=== PATIENT | male | born 1970 | race Caucasian/White ===

== ENCOUNTER 2020-02-05 07:51 | Outpatient (REF) | payer OTHER, SELFPAY ==
[2020-02-05 11:16] LABS: MANUAL DIFF FLAG NO
[2020-02-05 11:30] LABS: Basophils Percent Auto 0.8 % (0-2); Eosinophils Absolute Auto 0.3 X10*3/uL (0.0-0.4); Eosinophils Percent Auto 6.7 % (0-4); Hematocrit 41.6 % (42-52); Hemoglobin 14.1 g/dl (14.0-18.0); Imm Gran Abs Auto 0.01 X10*3/uL (0.00-0.03); Imm Gran Pct Auto 0.2 % (0.0-0.4); Lymphocytes Percent Auto 39.2 % (20-40); Mean Corpuscular HGB Conc 33.9 g/dl (31.0-36.0); Mean Corpuscular Hemoglobin 31.8 pg (27.0-33.0); Mean Corpuscular Volume 93.9 fL (80-98); Mean Platelet Volume 11.9 fL (9.4-12.4); Monocytes Absolute Auto 0.5 X10*3/uL (0.1-1.2); Monocytes Percent Auto 9.8 % (2-11); Neutrophils Absolute Auto 2.2 X10*3/uL (2.0-8.3); Neutrophils Percent Auto 43.3 % (45-73); Platelet Count 244 X10*3/uL (160-400); Red Blood Count 4.43 X10*6/uL (4.60-5.80); White Blood Count 5.1 X10*3/uL (4.8-10.8)
[2020-02-05 12:21] LABS: Alanine Aminotransferase 20 U/L (0-40); Albumin Level 4.6 g/dL (3.5-5.0); Alkaline Phosphatase 56 U/L (39-117); Anion Gap 13 (12-20); Aspartate Amino Transferase 22 U/L (5-37); Bilirubin Total 0.6 mg/dL (0.0-1.0); Blood Urea Nitrogen 10 mg/dL (9-16); Carbon Dioxide 29 mmol/L (22-29); Chloride 101 mmol/L (96-108); Cholesterol 165 mg/dL; Estimated Glomerular Filt Rate > 60; Glucose Fasting 99 mg/dL (60-99); HDL Cholesterol 43 mg/dL; LDL Cholesterol Calculated 96 mg/dl; Potassium 4.8 mmol/l (3.3-5.1); Sodium 138 mmol/L (135-145); Total Protein 7.4 g/dL (6.5-8.0); Triglycerides 131 mg/dL
[2020-02-05 12:48] LABS: Vitamin D 25-OH Total 31.8 ng/mL (>30)
== END 2020-02-05 07:52 | disposition home or self-care (01) ==
LOC: HO.HMGCLDS 07:51
PROVIDERS: PCP Internal Medicine; Visit Provider Internal Medicine
DX: Z00.00 Encounter for general adult medical examination without abnormal findings (principal); G47.33 Obstructive sleep apnea (adult) (pediatric); E55.9 Vitamin D deficiency, unspecified
CPT/HCPCS: 36415; 80053; 80061; 82306; 84443; 85025

== ENCOUNTER 2021-02-04 08:12 | Outpatient (REF) | payer OTHER, SELFPAY ==
[2021-02-04 11:28] LABS: MANUAL DIFF FLAG NO
[2021-02-04 11:34] LABS: Basophils Absolute Auto 0.1 X10*3/uL (0.0-0.2); Basophils Percent Auto 1.3 % (0-2); Eosinophils Absolute Auto 0.3 X10*3/uL (0.0-0.4); Eosinophils Percent Auto 6.1 % (0-4); Hematocrit 40.6 % (42.0-52.0); Hemoglobin 13.9 g/dl (14.0-18.0); Imm Gran Abs Auto 0.01 X10*3/uL (0.00-0.03); Imm Gran Pct Auto 0.2 % (0.0-0.4); Lymphocytes Absolute Auto 1.6 X10*3/uL (1.2-4.9); Lymphocytes Percent Auto 35.5 % (20-40); Mean Corpuscular HGB Conc 34.2 g/dl (31.0-36.0); Mean Corpuscular Volume 90.6 fL (80.0-98.0); Mean Platelet Volume 11.1 fL (9.4-12.4); Monocytes Absolute Auto 0.5 X10*3/uL (0.1-1.2); Monocytes Percent Auto 10.1 % (2-11); Neutrophils Absolute Auto 2.1 x10*3/uL (2.0-8.3); Neutrophils Percent Auto 46.8 % (45-73); Platelet Count 241 X10*3/uL (160-400); Red Blood Count 4.48 X10*6/uL (4.60-5.80); Red Cell Distribution Width 11.9 % (11.0-16.0); White Blood Count 4.6 X10*3/uL (4.8-10.8)
[2021-02-04 11:38] LABS: Appearance Urine CLEAR; Color Urine YELLOW; Glucose Urine UA NEG (NEG); Leukocyte Esterase Urine NEG (NEG); Nitrite Urine NEG (NEG); Specific Gravity - Urine <= 1.005 (1.005-1.025); Urine Blood NEG (NEG); Urine Ketones NEG (NEG); Urine Protein NEG (NEG-TRACE)
[2021-02-04 11:53] LABS: RBC Urine 0 /HPF (0); WBC Urine 0 /HPF (0-4)
[2021-02-04 12:03] LABS: Alanine Aminotransferase 31 U/L (0-40); Albumin Level 4.3 g/dL (3.5-5.0); Alkaline Phosphatase 57 U/L (39-117); Anion Gap 14 (12-20); Aspartate Amino Transferase 28 U/L (5-37); Bilirubin Total 0.5 mg/dL (0.0-1.0); Blood Urea Nitrogen 12 mg/dL (9-16); Calcium 8.8 mg/dL (8.4-10.2); Carbon Dioxide 25 mmol/L (22-29); Chloride 103 mmol/L (96-108); Cholesterol 159 mg/dL; Estimated Glomerular Filt Rate > 60; Glucose Fasting 99 mg/dL (60-99); HDL Cholesterol 41 mg/dL; LDL Cholesterol Calculated 101 mg/dl; Potassium 4.2 mmol/L (3.3-5.1); Sodium 138 mmol/L (135-145); Total Protein 7.1 g/dL (6.5-8.0); Triglycerides 85 mg/dL
[2021-02-04 12:27] LABS: PSA,Total (Free>4and<10) 0.49 ng/mL (0.00-4.00); Thyroid Stimulating Hormone 1.82 uIU/mL (0.32-4.0); Vitamin D 25-OH Total 25.5 ng/mL (>30)
== END 2021-02-04 08:13 | disposition home or self-care (01) ==
LOC: HO.HMGCLDS 08:12
PROVIDERS: PCP Internal Medicine; Visit Provider Internal Medicine
DX: Z00.00 Encounter for general adult medical examination without abnormal findings (principal); Z12.5 Encounter for screening for malignant neoplasm of prostate; E55.9 Vitamin D deficiency, unspecified; G47.33 Obstructive sleep apnea (adult) (pediatric)
CPT/HCPCS: 36415; 80053; 80061; 81001; 82306; 84153; 84443; 85025

== ENCOUNTER 2021-06-16 09:00 | Outpatient (REF) | payer OTHER, SELFPAY ==
--- NOTE | ~2021-06-16 | US_ITS ---
EXAMINATION: US ABDOMEN COMPLETE CLINICAL INFORMATION: Epigastric pain. COMPARISON: None TECHNIQUE: Real-time imaging of the abdominal viscera. Technically limited study secondary to bowel gas. FINDINGS: PANCREAS: Largely obscured by overlapping bowel gas. ABDOMINAL AORTA: The proximal, mid, and distal segments are normal in caliber. INFERIOR VENA CAVA: Visualized portions are normal. LIVER: There is diffuse increased liver parenchymal echogenicity. No focal hepatic mass is seen. The liver is normal in size and contour. No biliary ductal dilatation. GALLBLADDER: Normal. The gallbladder is physiologically distended without evidence of stones, sludge, polyps, wall thickening or pericholecystic fluid. COMMON BILE DUCT: Normal in caliber measuring 0.3 cm in diameter. RIGHT KIDNEY: Normal. No hydronephrosis. No renal calculi or focal parenchymal lesions. The kidney measures 11.4 cm in maximum dimension. LEFT KIDNEY: Normal. No hydronephrosis. No renal calculi or focal parenchymal lesions. The kidney measures 11.6 cm in maximum dimension. SPLEEN: Normal. The spleen measures 12.3 cm in maximum dimension. FREE FLUID: None. US/US abdomen complete IMPRESSION: There is generalized increase in hepatic echotexture, consistent with fatty infiltration or hepatocellular disease. Please correlate clinically. No focal hepatic mass or intrahepatic biliary dilatation is seen.
== END 2021-06-16 09:01 | disposition home or self-care (01) ==
LOC: HO.HMGCX 09:00
PROVIDERS: Visit Provider Internal Medicine Gastroenterology
DX: R10.13 Epigastric pain (principal)
CPT/HCPCS: 76700

== ENCOUNTER 2021-07-22 06:47 | Day surgery (SDC) | payer OTHER, SELFPAY ==
[2021-07-15 15:29] VITALS: BMI 32.5
--- NOTE | 2021-07-21 10:16 | HO.ANESPROP2 ---
Documented by User: Arlin Bello NP 07/21/21 10:17 HPI - Anesthesia Eval Consult details Narrative: 51yo M for Upper Endoscopy and Colonoscopy [facility] Past Medical History Medical History COVID-19 vaccine series completed Sleep apnea Surgical History Surgical History Hx of wisdom tooth extraction Social History Social History Patient Tobacco Use Status: Former Tobacco user Quit Date: age 33 Tobacco use type: Cigarette Use of substances other than those prescribed or required for medical reasons: No Have you been hit, kicked, punched, or otherwise hurt by someone within the past year? If so, by whom?: No Are you DNR?: No Advance Directives: No Advance Directives Information Provided: Yes Advance Directives on File: No Recently lost weight without trying: No Eating poorly because of decreased appetite: No Nutrition Risks: No Nutritional Risk Poor oral hygiene: No (dental implants) Meds Allergies Allergy/AdvReac Type Severity Reaction Status Date / Time No Known Allergies Allergy Verified 07/22/21 07:04 Home Medications Medication Instructions Recorded Confirmed Last Taken Type cholecalciferol (vitamin D3) 25 25 mcg PO DAILY 07/15/21 07/15/21 Unknown History mcg (1,000 unit) capsule (Vitamin D3) multivitamin 1 tab PO DAILY 07/15/21 07/15/21 Unknown History Exam Exam Date and Time: July 21, 2021 1016 Height,Weight and Vital Signs: Height 5 ft 10 in Weight 102.965 kg Pertinent Lab Results Pertinent Lab Results: Laboratory Tests 02/04/21 02/04/21 08:39 08:39 WBC 4.6 L Hgb 13.9 L Hct 40.6 L Plt Count 241 Sodium 138 Potassium 4.2 Chloride 103 Carbon Dioxide 25 BUN 12 Creatinine 1.01 Assessment and Plan Assessment Anesthesia Assessment: Chart Reviewed Documented by User: Lissa Giles MD 07/22/21 08:33 [facility] Past Medical History Medical History COVID-19 vaccine series completed Sleep apnea Family History Family history of problems with anesthesia: No Surgical History Surgical History Hx of wisdom tooth extraction History of Problems with Anesthesia: No Social History Social History Patient Tobacco Use Status: Former Tobacco user Quit Date: age 33 Tobacco use type: Cigarette Use of substances other than those prescribed or required for medical reasons: No Have you been hit, kicked, punched, or otherwise hurt by someone within the past year? If so, by whom?: No Are you DNR?: No Advance Directives: No Advance Directives Information Provided: Yes Advance Directives on File: No Recently lost weight without trying: No Eating poorly because of decreased appetite: No Nutrition Risks: No Nutritional Risk Poor oral hygiene: No (dental implants) Meds Allergies Allergy/AdvReac Type Severity Reaction Status Date / Time No Known Allergies Allergy Verified 07/22/21 07:04 Home Medications Medication Instructions Recorded Confirmed Last Taken Type cholecalciferol (vitamin D3) 25 25 mcg PO DAILY 07/15/21 07/15/21 Unknown History mcg (1,000 unit) capsule (Vitamin D3) multivitamin 1 tab PO DAILY 07/15/21 07/15/21 Unknown History Exam Height,Weight and Vital Signs: Height 5 ft 10 in Weight 102.965 kg Vital Signs Temp Pulse Resp BP Pulse Ox 07/22/21 07:09 98.9 F 94 16 129/82 95 Airway Mallampati Class: II TM Dist: >3cm Neck ROM: Full Loose/Missing/Broken Teeth: No Heart: RRR Lungs: CTAB Assessment and Plan Assessment Anesthesia Assessment: Anesthesia Plan Discussed Final Anesthetic Review Family History of Problems with Anesthesia: No History of Problems with Anesthesia: No NPO: Yes ASA Class: II Final Preanesthetic Review: No Changes in Pt Med Stat, Meds/Allgs Chart Reviewed, Consent Obtained/Reviewed and Anes Risks/Benef Reviewed Patient Risk: Intermediate Procedure Risk: Low Assessment/Block/Sedation in SS: Assess/Block/Sedation-SS Anesthetic Plan Anesthetic Plan: MAC: Disposition: Standard PACU
[2021-07-22 07:09] VITALS: BP 129/82; PULSE 94; RESP 16; TEMP 37.2; O2SAT 95
[2021-07-22] MEDS: Lactated Ringers 1,000 ML 100 ML IVCONT (07:26)
--- NOTE | 2021-07-22 08:22 | MHC.SHP ---
Pre-Procedural Eval Section A Date of Service: 07/22/21 Section B Chief Complaint: screening,dysphagia Details of Present Illness: see h and p no changes Relevant Family History (Specify if Yes): No Relevant Social History: None Present Medications: see Short Stay Collaborative assessment Medical History: No relevant PMH History of Previous Operations: No relevant previous surgery Allergies: Allergies Allergy/AdvReac Type Severity Reaction Status Date / Time No Known Allergies Allergy Verified 07/22/21 07:04 Review of Systems Sugical H&P ROS: Negative: Constitution, Cardiovascular, Respiratory, Neurological, Psychiatric, Hem-Onc, Allergic/Immunologic, Gastrointestinal, Genitourinary, Musculoskeletal, Integumentary, Endocrine and Eyes/Ears/Nose/Throat Exam Surgical H&P Exam: Normal: HEENT, Normal: Heart, Normal: Lungs, Normal: Extremities, Normal: Abdomen, Normal: Skin and Normal: Neurological Plan Diagnosis/Plan: Unchanged I have reviewed the history and physical and performed a pertinent physical examination on my patient. No changes have occurred unless specified.
[2021-07-22 09:12] VITALS: BP 105/60; PULSE 88; RESP 16; TEMP 37.2
--- NOTE | 2021-07-22 09:14 | PM.OP ---
Brief Operative Note Date of Service: 07/22/21 Pre-op diagnosis: gerd,screeening Post-op diagnosis: same Procedure: egd,colon Surgeon: Guero Mathew Anesthesia: MAC Was an Learning And Development Assistant used for this Procedure?: No Estimated blood loss (mL): 2 Pathology: other Condition: stable Disposition: PACU
[2021-07-22 09:27] VITALS: BP 110/68; PULSE 87; RESP 18; TEMP 37.3; O2SAT 95
--- NOTE | 2021-07-22 21:19 | OP_ITS ---
SURGEON: Guero Mathew MD INDICATIONS: 1. Gastroesophageal reflux disease. 2. Colon cancer screening. PREOPERATIVE DIAGNOSIS: POSTOPERATIVE DIAGNOSIS: PROCEDURE PERFORMED: Upper endoscopy with biopsy, colonoscopy to the cecum with biopsy. ESTIMATED BLOOD LOSS: COMPLICATIONS: ANESTHESIA: ASSISTANTS: SPECIMENS: MEDICATIONS: Monitored anesthesia care. DESCRIPTION OF PROCEDURE: History and physical performed. The risks and benefits of the procedure were explained to the patient. Informed consent was obtained. The patient was placed in the left lateral decubitus position. The Olympus video gastroscope was introduced into the esophagus, stomach, and duodenum. Examination was performed, and the scope was removed. He was repositioned for colonoscopy. Digital rectal exam was performed and was found to be normal. The Olympus pediatric video colonoscope was introduced into the rectum and advanced to the cecum without difficulty. The cecum was identified by transillumination, palpation, and identification of the ileocecal valve. The abdominal wall pressure was used to assist in advancement of the scope due to looping in the sigmoid. Examination was performed. The scope was removed. He tolerated the procedure well and was taken to recovery room in stable condition. FINDINGS: Upper endoscopy esophagus: There was nonobstructive Schatzki ring with some distal esophagitis and a superficial 5 mm erosion at the EG junction. Biopsies were obtained. Stomach: The stomach showed no evidence of masses, ulcers, or polyps. Antral biopsies were obtained to rule out H pylori. Duodenum: The bulb and second portion were normal. Colonoscopy: The terminal ileum was not examined. The visualized colonic mucosa was within normal limits without evidence of masses or ulcers. A single polyp measuring less than 5 mm was removed with the biopsy forceps and located in the rectum. The quality of prep was good. Retroflexed examination showed small internal hemorrhoids. IMPRESSION: 1. Gastroesophageal reflux disease with esophagitis. 2. Colon polyp. RECOMMENDATION: Follow up the biopsy results. MD DACIA Mays/MODL / [id number]
== END 2021-07-22 10:17 | disposition home or self-care (01) ==
PROVIDERS: PCP Internal Medicine; Visit Provider Internal Medicine Gastroenterology
PROC: (CPT 45380; principal; 2021-07-22 08:10)
DX: Z12.11 Encounter for screening for malignant neoplasm of colon (principal); K62.1 Rectal polyp; K20.80 Other esophagitis without bleeding; R13.19 Other dysphagia; K21.9 Gastro-esophageal reflux disease without esophagitis; E55.9 Vitamin D deficiency, unspecified; G47.33 Obstructive sleep apnea (adult) (pediatric); Z99.89 Dependence on other enabling machines and devices; Z79.899 Other long term (current) drug therapy
CPT/HCPCS: 45380; 43239; 88305; 88342; J2370

== ENCOUNTER 2022-02-07 08:27 | Outpatient (REF) | payer OTHER, SELFPAY ==
[2022-02-07 11:30] LABS: Appearance Urine Clear; Color Urine Yellow; Glucose Urine UA Negative (Negative); Leukocyte Esterase Urine Negative (Negative); Nitrite Urine Negative (Negative); PH 7.5 (5.0-9.0); Specific Gravity - Urine 1.015 (1.005-1.025); Urine Blood Negative (Negative); Urine Ketones Negative (Negative); Urine Protein Negative (Neg-Trace)
[2022-02-07 11:37] LABS: Bacteria Urine None Seen (None Seen); Hyaline Casts Urine 0-2 /LPF (0-2); RBC Urine 0-2 /HPF (0-2); Squamous Epithelial Cell Urine 0-2 /HPF (0-2); WBC Urine 0-5 /HPF (0-5)
[2022-02-07 11:45] LABS: MANUAL DIFF FLAG NO
[2022-02-07 12:18] LABS: Basophils Percent Auto 0.6 % (0-2); Eosinophils Absolute Auto 0.2 X10*3/uL (0.0-0.4); Eosinophils Percent Auto 4.4 % (0-4); Hematocrit 41.5 % (42.0-52.0); Hemoglobin 14.3 g/dl (14.0-18.0); Imm Gran Abs Auto 0.01 X10*3/uL (0.00-0.03); Imm Gran Pct Auto 0.2 % (0.0-0.4); Lymphocytes Absolute Auto 1.6 X10*3/uL (1.2-4.9); Lymphocytes Percent Auto 34.1 % (20-40); Mean Corpuscular HGB Conc 34.5 g/dl (31.0-36.0); Mean Corpuscular Hemoglobin 31.7 pg (27.0-33.0); Monocytes Absolute Auto 0.5 X10*3/uL (0.1-1.2); Monocytes Percent Auto 9.4 % (2-11); Neutrophils Absolute Auto 2.5 x10*3/uL (2.0-8.3); Neutrophils Percent Auto 51.3 % (45-73); Platelet Count 264 X10*3/uL (160-400); Red Blood Count 4.51 X10*6/uL (4.60-5.80); Red Cell Distribution Width 12.1 % (11.0-16.0); White Blood Count 4.8 X10*3/uL (4.8-10.8)
[2022-02-07 13:11] LABS: Alanine Aminotransferase 19 U/L (0-40); Albumin Level 4.4 g/dL (3.5-5.0); Alkaline Phosphatase 61 U/L (39-117); Anion Gap 14 (12-20); Aspartate Amino Transferase 19 U/L (5-37); Bilirubin Total 0.8 mg/dL (0.0-1.0); Blood Urea Nitrogen 14 mg/dL (9-16); Calcium 9.2 mg/dL (8.4-10.2); Carbon Dioxide 26 mmol/L (22-29); Chloride 101 mmol/L (96-108); Cholesterol 186 mg/dL; Estimated Glomerular Filt Rate > 60; Glucose Fasting 104 mg/dL (60-99); HDL Cholesterol 43 mg/dL; LDL Cholesterol Calculated 116 mg/dl; Potassium 4.5 mmol/L (3.3-5.1); Sodium 136 mmol/L (135-145); Thyroid Stimulating Hormone 2.16 uIU/mL (0.32-4.0); Total Protein 7.2 g/dL (6.5-8.0); Triglycerides 138 mg/dL; Vitamin D 25-OH Total 34.1 ng/mL (>30)
== END 2022-02-07 08:28 | disposition home or self-care (01) ==
LOC: HO.HMGCLDS 08:27
PROVIDERS: PCP Internal Medicine; Visit Provider Internal Medicine
DX: Z00.00 Encounter for general adult medical examination without abnormal findings (principal); Z12.5 Encounter for screening for malignant neoplasm of prostate; E55.9 Vitamin D deficiency, unspecified; G47.33 Obstructive sleep apnea (adult) (pediatric)
CPT/HCPCS: 36415; 80053; 80061; 81001; 82306; 84153; 84443; 85025

== ENCOUNTER 2022-02-10 11:17 | Outpatient (REF) | payer OTHER, SELFPAY ==
[2022-02-10 12:13] LABS: COVID-19 Test Negative (Negative); IDNOW Serial# 16C4AD1C
== END 2022-02-10 11:18 | disposition home or self-care (01) ==
LOC: HO.LAB 11:17
PROVIDERS: Visit Provider Internal Medicine
DX: Z20.822 Contact with and (suspected) exposure to COVID-19 (principal)
CPT/HCPCS: 87635; C9803

== ENCOUNTER 2023-07-19 08:27 | Outpatient (REF) | payer OTHER, SELFPAY ==
[2023-07-19 10:22] LABS: MANUAL DIFF FLAG NO
[2023-07-19 10:33] LABS: Basophils Percent Auto 0.8 % (0-2); Eosinophils Absolute Auto 0.2 X10*3/uL (0.0-0.4); Eosinophils Percent Auto 4.4 % (0-4); Hematocrit 42.3 % (42.0-52.0); Hemoglobin 14.2 g/dl (14.0-18.0); Imm Gran Abs Auto 0.01 X10*3/uL (0.00-0.03); Imm Gran Pct Auto 0.2 % (0.0-0.4); Lymphocytes Absolute Auto 1.7 X10*3/uL (1.2-4.9); Lymphocytes Percent Auto 33.6 % (20-40); Mean Corpuscular HGB Conc 33.6 g/dl (31.0-36.0); Mean Corpuscular Hemoglobin 30.7 pg (27.0-33.0); Mean Corpuscular Volume 91.4 fL (80.0-98.0); Mean Platelet Volume 11.5 fL (9.4-12.4); Monocytes Absolute Auto 0.5 X10*3/uL (0.1-1.2); Monocytes Percent Auto 8.9 % (2-11); Neutrophils Absolute Auto 2.6 x10*3/uL (2.0-8.3); Neutrophils Percent Auto 52.1 % (45-73); Platelet Count 266 X10*3/uL (160-400); Red Blood Count 4.63 X10*6/uL (4.60-5.80); Red Cell Distribution Width 12.2 % (11.0-16.0)
[2023-07-19 11:29] LABS: ~HepC Num1 0.17 S/CO (0.00-0.79); ~Hepatitis C Antibody Nonreactive (Nonreactive)
[2023-07-19 11:37] LABS: Alanine Aminotransferase 32 U/L (0-40); Albumin Level 4.4 g/dL (3.5-5.0); Alkaline Phosphatase 56 U/L (39-117); Anion Gap 13 (12-20); Aspartate Amino Transferase 25 U/L (5-37); Bilirubin Total 0.6 mg/dL (0.0-1.0); Blood Urea Nitrogen 13 mg/dL (9-16); Calcium 9.8 mg/dL (8.4-10.2); Carbon Dioxide 26 mmol/L (22-29); Chloride 104 mmol/L (96-108); Cholesterol 157 mg/dL (<200); Estimated Glomerular Filt Rate > 60; Glucose Fasting 104 mg/dL (60-99); HDL Cholesterol 40 mg/dL (>40); LDL Cholesterol Calculated 100 mg/dL (<100); Potassium 4.8 mmol/L (3.3-5.1); Sodium 138 mmol/L (135-145); Thyroid Stimulating Hormone 2.35 uIU/mL (0.32-4.0); Total Protein 7.3 g/dL (6.5-8.0); Triglycerides 85 mg/dL (<150); Vitamin D 25-OH Total 55.5 ng/mL (>30)
== END 2023-07-19 08:28 | disposition home or self-care (01) ==
LOC: HO.HMGCLDS 08:27
PROVIDERS: PCP Internal Medicine; Visit Provider Internal Medicine
DX: G47.33 Obstructive sleep apnea (adult) (pediatric) (principal); E66.09 Other obesity due to excess calories; E55.9 Vitamin D deficiency, unspecified; K21.9 Gastro-esophageal reflux disease without esophagitis; L43.9 Lichen planus, unspecified
CPT/HCPCS: 36415; 80053; 80061; 82306; 84443; 85025; 86803

== ENCOUNTER 2023-09-26 10:49 | Outpatient (REF) | payer OTHER, SELFPAY ==
--- NOTE | ~2023-09-26 | XR_ITS ---
EXAMINATION: XR TIBIA AND FIBULA, LEFT CLINICAL INFORMATION: Pain after injury COMPARISON: None available. TECHNIQUE: AP and lateral views of the left tibia and fibula were obtained. FINDINGS: An arrow points to the area of injury, and there does appear to be a subtle cortical impaction injury or fracture, best seen on the lateral view. This would appear to correlate with the anterior mid tibia. The fibula is intact. XR/XR tibia fibula LT 2V IMPRESSION: Hairline fracture.
== END 2023-09-26 10:50 | disposition home or self-care (01) ==
LOC: HO.HMGCX 10:49
PROVIDERS: PCP Internal Medicine; Visit Provider Internal Medicine
DX: S89.92XA Unspecified injury of left lower leg, initial encounter (principal)
CPT/HCPCS: 73590

== ENCOUNTER 2023-11-09 11:36 | Outpatient (REF) | payer OTHER, SELFPAY ==
--- NOTE | ~2023-11-09 | XR_ITS ---
EXAMINATION: X-RAY TIBIA-FIBULA, LEFT CLINICAL INFORMATION: Fracture follow-up, injury COMPARISON: Radiographs 09/26/2023 TECHNIQUE: AP and lateral radiographs of the left tibia fibula FINDINGS: No change in the appearance of the transverse fracture involving the anterior half of the thickened anterior cortex of the mid tibial diaphysis. This may represent a chronic stress fracture. The fibula appears normal. XR/XR tibia fibula LT 2V IMPRESSION: No change in the appearance of the anterior tibial diaphysis fracture, incomplete and likely stress related. Electronically signed by: Nasim Dougherty MD 11/15/2023 12:57 PM EDT
== END 2023-11-09 11:37 | disposition home or self-care (01) ==
LOC: HO.HMGCX 11:36
PROVIDERS: PCP Internal Medicine; Visit Provider Internal Medicine
DX: S89.92XD Unspecified injury of left lower leg, subsequent encounter (principal)
CPT/HCPCS: 73590

== ENCOUNTER 2023-12-10 13:08 | Outpatient (REF) | payer OTHER, SELFPAY ==
--- NOTE | ~2023-12-10 | XR_ITS ---
EXAMINATION: X-RAY TIBIA-FIBULA, LEFT CLINICAL INFORMATION: Fracture follow-up, injury COMPARISON: Radiographs 09/26/2023 TECHNIQUE: AP and lateral radiographs of the left tibia fibula FINDINGS: No change in the appearance of the transverse stress fracture involving the anterior half of the thickened anterior cortex of the mid tibial diaphysis. This is consistent with a stable chronic stress fracture. There is a focal periostitis abutting the lateral aspect of the cortex. The fibula appears normal. The imaged knee and ankle joints appear normal. No soft tissue abnormalities. XR/XR tibia fibula LT 2V IMPRESSION: 1. No change in the appearance of the anterior mid to distal tibial diaphyseal stress fracture. 2. No new finding. Electronically signed by: Jason Arevalo MD 02/18/2024 09:40 AM JOHN
== END 2023-12-10 13:09 | disposition home or self-care (01) ==
LOC: HO.XRAY 13:08
PROVIDERS: PCP Internal Medicine; Visit Provider Physician Assistant
DX: M84.362A Stress fracture, left tibia, initial encounter for fracture (principal)
CPT/HCPCS: 73590; 99202

== ENCOUNTER → 2023-12-10 13:12 | Outpatient (BNV) | payer OTHER, SELFPAY | PROVIDERS: PCP Internal Medicine; Visit Provider Radiology Diagnostic Radiology | DX: M84.362D Stress fracture, left tibia, subsequent encounter for fracture with routine healing (principal) | CPT/HCPCS: 73590 ==

== ENCOUNTER 2023-12-10 13:41 | Outpatient (AMB) | payer OTHER, SELFPAY ==
--- OUTSIDE RECORDS SUMMARY | 2023-12-10 13:47 | XMS_ITS | Patient Health Record ---
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 Phone Roberto Linares DO Primary Care Provider Unavail able Quincy Babb Guero Unavailable ALLERGIES No Known Allergies REASON FOR REFERRAL No Information MEDICATIONS Medication SIG (Take, Route, Frequency, Duration) Notes Start Date End Date Status Omeprazole 20 MG 1 capsule 30 minutes before morning meal Orally Once a day for 30 days 08/01/2021 Active Multi Vitamin - 1 tablet Orally Once a day for 30 day(s) Active Vitamin D (Cholecalciferol) 25 MCG (1000 UT) 1 capsule Orally Once a day for 30 day(s) Active IMMUNIZATIONS Vaccine Route Administration Date Status Comme nts Influenza Unknown 01/05/2021 Administered SOCIAL HISTORY Tobacco Use: Social History Observation Description Date Details (start date - stop date) Never Smoker NA - NA Sex Assigned At : Social History Observation Description Sex Assigned At Unknown Tobacco Use/Smoking Question Answer Notes Patient is a nonsmoker Alcohol Screen Question Answer Notes Did you have a drink contain ing alcohol in the past year? Yes How often did you have a dri nk containing alcohol in the past year? 2 to 4 times a month (2 points) How many drinks did you have on a typical day when you were drinking in the past year? 1 or 2 drinks (0 point) How often did you have 6 or more drinks on one occasion in the past year? Never (0 point) Points 2 Interpretation Negative PROBLEMS Problem Type ICD Code Onset Dates Problem Status W/U Status Risk SNOMED Code Notes Problem Other dysphagia (R13.19) Active confirmed 68207964 Problem Epigastric pain (R10.13) Active confirmed 64968973 Problem Colon cancer screening (Z12.11) Active confirmed 264674285 Problem Dysphagia (R13.10) Active confirmed Dysphagia (72097270) Problem Gastro-esophag eal reflux disease with esophagitis, without bleeding (K21.00) Active confirmed Gastroesophagea l reflux disease with esophagitis (disorder) (750226300) PLAN OF TREATMENT Pending Test Test Name Order Date US ABD 06/01/2021 Future Test Test Name Order Date UPPER GI ENDOSCOPY 06/01/2021 COLONOSCOPY 06/01/2021 Insurance Providers Payer Name Payer Address Payer Phone Subscriber Number Group Number Insured Name Patient Relationship to Insured Coverage Start Date Coverage End Date [facility] Attn Claims [address] [place] [address] [id number] GISSEL JANSEN Self - patient is the insured MEDICAL (GENERAL) HISTORY Medical History History ICD Code Vitamin D deficiency Obstructive sleep apnea/CPAP Surgical History Surgery Date(Month/Year) wisdom teeth
--- NOTE | 2023-12-10 13:50 | A.OFFVIS_ITS ---
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 Patient reports that he was seen by his PCP for a lump located on his lower leg. His PCP ordered xrays that showed a hairline fracture, he repeated xrays a month later with no improvement of fracture. He is unaware of any injury. His most concern is the visible lump, he states occasionally he will have discomfort. Denies numbness or tingling. 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 He has not had any injury in the past. He was seen by his PCP for a lump located on his left lower leg who ordered x-rays. He currently states he has a visible lump on his leg and he occasionally experiences discomfort at the lump. He denies any numbness or tingling. [facility] Medical History COVID-19 vaccine series completed Sleep apnea Surgical History Hx of wisdom tooth extraction Social History Patient Tobacco Use Status: Former Tobacco user Tobacco use type: Cigarette Review of Systems Const All systems reviewed & are unremarkable except as noted in HPI and below Physical Exam Vital Signs: BMI result Body Mass Index 30.1 Const General: cooperative, healthy appearing, comfortable, no acute distress, well d eveloped and alert Orientation/consciousness: patient oriented x3 HEENT Head: Yes normal to inspection, Yes normocephalic and Yes atraumatic Eyes General: appearance normal, both eyes and all related structures Resp Effort & Inspection: normal respiratory effort and able to speak in complete sentences Cardio Rate: regular rate Peripheral pulses: Peripheral pulses 2+ throughout GI Palpation (GI): Soft to palpation Skin Lesions: no lesions Rashes: no rashes Neuro General: patient oriented x3 Extrem Other: Left tibia: Normal to inspection. He does have a bony prominence area along the distal 3rd of tibia without tenderness to palpation. Office Procedures Fracture Care Fracture Billing Code: Fracture Billing Code Results Reviewed Results Reviewed: xrays of the left tib/fib obtained today show No change in the appearance of the anterior tibial diaphysis fracture, incomplete and likely stress related. Assessment & Plan Assessment & Plan (1) Stress fracture, left tibia, initial encounter for fracture: Code(s): M84.362A - Stress fracture, left tibia, initial encounter for fracture Category: Medical Plan X-rays obtained today do show what appears to be a hairline fracture along the distal 3rd of tibia with evidence of healing compared to previous x-rays. An MRI scan of the LLE was ordered to further evaluate the extent of his injury. Once this is complete, I will contact him to discuss the results. Orders: Orders MR lower leg LT wo con Today M84.362A - Stress fracture, left tibia, initial encounter for fracture XR tibia fibula LT 2V Today M79.605 - Pain in left leg Patient Instructions: Scribed for Richmond Woods PA-C, by Orville Islas medical field representative, on 12/10/2023 at 1:15 PM EST.? I, Richmond Woods PA-C, have personally reviewed and agree with the information entered by the scribe. Coding Level of Care Code New Pt Level 4 (61706) Complex EM visit Add On G2211 Diagnoses Stress fracture, left tibia, initial encounter for fracture M84.362A CPT Codes Fracture Care - Fracture Billing Code: Fracture Billing Code ([id number])
[2023-12-10 13:53] VITALS: BMI 30.1
== END 2023-12-10 14:09 | disposition home or self-care (01) ==
LOC: HO.HOS 13:41
PROVIDERS: PCP Internal Medicine; Visit Provider Physician Assistant
DX: M84.362A Stress fracture, left tibia, initial encounter for fracture (principal)
CPT/HCPCS: 99203; G2211

== ENCOUNTER 2023-12-26 20:03 | Outpatient (REF) | payer OTHER, SELFPAY ==
--- NOTE | ~2023-12-26 | MR_ITS ---
EXAMINATION: MRI LOWER LEG WITHOUT CONTRAST, LEFT CLINICAL INFORMATION: Stress fracture COMPARISON: Radiographs 12/10/2023 TECHNIQUE: MRI without contrast is performed on the left lower leg FINDINGS: There is evidence of the stress fracture involving the anterior cortex of the mid tibial diaphysis with the linear lucency better demonstrated on the radiographs. There is subtle edema of the overlying periosteum with no marrow edema suggesting minimal, if any, residual active stress reaction. There is mild diffuse subcutaneous edema. No acute muscle strain or tear. Incidental mild chronic Achilles tendinosis. MR/MR lower leg LT wo con IMPRESSION: Minimal, if any, residual active stress reaction of the mid tibial diaphysis. Electronically signed by: Nasim Dougherty MD 01/02/2024 04:23 PM EDT
== END 2023-12-26 20:04 | disposition home or self-care (01) ==
LOC: HO.MRI 20:03
PROVIDERS: PCP Internal Medicine; Visit Provider Physician Assistant
DX: M84.362A Stress fracture, left tibia, initial encounter for fracture (principal)
CPT/HCPCS: 73718

== ENCOUNTER 2024-01-09 10:34 | Outpatient (AMB) | payer OTHER, SELFPAY ==
--- NOTE | 2024-01-09 10:34 | A.OFFVIS_ITS ---
Vital Signs 01/09/24 10:37 Height 5 ft 10 in Weight 210 lb BMI 30.1 Intake Visit Reasons: MRI review Intake Note: Flo a 53 year old male who is scheduled for a telephone visit to review MRI of left leg. Allergies No Known Allergies Allergy (Verified 12/10/23 13:53) HPI HPI MRI review: Details: 53 yo fu telehealth visit MRI of the left tibia. He states that he continues to have no pain with any type of activity. [facility] Medical History COVID-19 vaccine series completed Sleep apnea Surgical History Hx of wisdom tooth extraction Social History Patient Tobacco Use Status: Former Tobacco user Tobacco use type: Cigarette Review of Systems Const All systems reviewed & are unremarkable except as noted in HPI and below Physical Exam Resp Effort & Inspection: normal respiratory effort and able to speak in complete sentences Telehealth Telehealth Telehealth Platform: Telephone Location of provider rendering services: practice address Location of patient: address on file Patient Identification confirmed using: Name, : Yes Telehealth method: voice only Patient verbally consented to treatment: Yes Patient verbally consented to billing insurance company: Yes Patient informed of any privacy concerns related to visit: Yes Minutes spent on Phone/Video with Pt.: 5 Results Reviewed Results Reviewed: MR lower leg LT wo con IMPRESSION: Minimal, if any, residual active stress reaction of the mid tibial diaphysis. Assessment & Plan Assessment & Plan (1) Stress fracture, left tibia, initial encounter for fracture: Code(s): M84.362A - Stress fracture, left tibia, initial encounter for fracture Category: Medical Plan: We reviewed the MRI findings today. I explained that with the absence of pain with any type of activity or even walking is reassuring that this is healing well. If he develops any symptoms he should contact our office for re- evaluation otherwise follow-up as needed. Coding Level of Care Code Tele Est Pt Level 3 (61532) Complex EM visit Add On G2211 Diagnoses Stress fracture, left tibia, initial encounter for fracture M84.362A
[2024-01-09 10:37] VITALS: BMI 30.1
--- OUTSIDE RECORDS SUMMARY | 2024-01-09 10:37 | XMS_ITS | Patient Health Record ---
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 Role Phone Roberto Linares DO Primary [...] Notes Problem Other dysphagia (R13.19) Active confirmed 33872257 Problem Epigastric pain (R10.13) Active confirmed 25880635 Problem Colon cancer screening (Z12.11) Active confirmed 998608459 Problem Dysphagia (R13.10) Active confirmed Dysphagia (30892239) Problem Gastro-esophag eal reflux disease with esophagitis, without bleeding (K21.00) Active confirmed Gastroesophagea l reflux disease with esophagitis (disorder) (818161613) PLAN OF TREATMENT Pending Test Test Name Order Date US ABD 06/01/2021 Future Test Test Name Order Date UPPER GI ENDOSCOPY 06/01/2021 COLONOSCOPY 06/01/2021 Insurance Providers Payer Name Payer Address Payer Phone Subscriber Number Group Number Insured Name Patient Relationship to Insured Coverage Start Date Coverage End Date [facility] Attn Claims [address] [place] [address] [id number] GISSEL JANSEN Self - patient is the insured MEDICAL (GENERAL) HISTORY Medical History History ICD Code Vitamin D deficiency Obstructive sleep apnea/CPAP Surgical History Surgery Date(Month/Year) wisdom teeth
== END 2024-01-09 10:39 | disposition home or self-care (01) ==
LOC: HO.HOS 10:34
PROVIDERS: PCP Internal Medicine; Visit Provider Physician Assistant
DX: M84.362A Stress fracture, left tibia, initial encounter for fracture (principal)
CPT/HCPCS: 99213; G2211

== ENCOUNTER → 2024-01-09 10:34 | Outpatient (BNVA) | payer OTHER, SELFPAY | PROVIDERS: PCP Internal Medicine; Visit Provider Physician Assistant ==

== ENCOUNTER 2024-07-17 08:24 | Outpatient (REF) | payer OTHER, SELFPAY ==
--- OUTSIDE RECORDS SUMMARY | 2024-07-17 08:37 | XMS_ITS | Continuity of Care Document ---
Author Name [facility] Organization [facility] Care Team Providers Care Art Editor Name Role Phone [facility] Unavailable Unavailable Problems Combined list of problems from Department of Defense and Veterans Affairs facilities. It does not include entries that were removed or entered in error. 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 Condition [facility] visit for: administrative purpose Inactive Condition DoD Dietary Counseling Pertaining To Specific Condition Active Condition DoD HERNADEZ SPLINT Inactive Condition [facility] visit for: occupational health / fitness exam Active Condition DoD PHARYNGITIS Inactive Condition DoD sore throat Inactive Condition DoD Vaccines Prophylactic Need Against Influenza Inactive Condition DoD ASSESSMENT OF PATIENT CONDITION WORK-RELATED Active Condition DoD feared medical condition not demonstrated Inactive Condition DoD Vaccines Prophylactic Need Against Smallpox Inactive Condition DoD Vaccines Prophylactic Need Against Bacterial Diseases Inactive Condition DoD visit for: screening exam pulmonary tuberculosis Inactive Condition DoD Need For Vaccination Hepatitis B Inactive Condition DoD Need For Vaccination Typhoid Inactive Condition [facility] REFRACTIVE ERROR - MYOPIA Active Condition [facility] ASTIGMATISM - REGULAR Active Condition [facility] visit for: ears / hearing exam Inactive Condition [facility] visit for: services physical Active Condition DoD Layer Closure Of Wound Inactive Condition DoD SUPERFICIAL INJURY OF HANDS Inactive Condition Wound was debrided and irrigated with NS. Steri-strippe d in standard fashion. Advised to keep clean and dry. Applied light splint to reduce liklihood of opening wound. Member advised of risk of infection / signs to watch out for. Otherwise, he shall f/u this Sunday for further evaluation prior to departing back to home. RTC sooner PRN. [facility] Diagnosis: ICD-10-CM Z02.89 Encounter for other administrative examinations Active Diagnosis [facility] Medications Combined list of outpatient medications from Department of Defense and Veterans Affairs facilities.Medications provided include 1) outpatient medications from the last 15 months, and 2) patient-reported medications. Medication Details Route Status Patient Instructions Prescription Expires Prescription Number Last Dispense Date Ordering Provider Order Date Order Qty Source doxycycline hyclate 100 mg oral tablet 0 total refill(s ) Ordered 2021 No Facilit y Access FLUARIX QUAD 4456-0090 (influenza virus vaccine quadrival 3416-2040(6 mos and up)/PF), 60MCG/.5ML, FLUARIX QUAD 2 (influen za virus vaccine quadriva l 2020- 2(6 mos and up)/PF), 60MCG/.5 ML, Start Date: 01/12/21 Status: Ordered Repeat number: 1 Ordered 2021 No Facilit y Access SARS-CoV-2 (COVID-19) mRNA BNT-162b2 vaccine 30 mcg/0.3 mL PF intramuscul ar suspension SARS-CoV -2 (COVID-1 9) mRNA BNT-162b 2 vaccine 30 mcg/0.3 mL PF intramus cular suspensi on Start Date: 03/08/21 Status: Ordered Repeat number: 1 Ordered 2021 No Facilit y Access SHINGRIX (varicella- zoster virus glycoprotei n E,rec/AS01B adjuvant/PF ), 50 MCG/0.5, KIT, INTRAMUSC, SandForceK LINE, 1 ea. KIT Active [id number] 2023 1 Pharmac y Data Transac tion Service Facilit y tetanus/dip hth/pertuss (Tdap) adult/adol 5 units-2.5 units-18.5 mcg/0.5 mL intramuscul ar suspension tetanus/ diphth/p ertuss (Tdap) adult/ad ol 5 units-2. 5 units-18 .5 mcg/0.5 mL intramus cular suspensi on Start Date: 09/10/20 Status: Ordered Repeat number: 1 Ordered 2021 No Facilit y Access Allergies, Adverse Reactions, Alerts Combined list of allergies from Department of Defense and Veterans Affairs facilities. It does not include entries that were removed or entered in error. Substance Category Reaction Severity Reaction type Status Date Reported Comments Source No Known Allergies Drug allergy (disorder) active 12/15/2005 [facility] Immunizations Combined list of available immunizations from the Department of Defense and Veterans Affairs facilities. Immunization Series Date Given Administered By Site Reaction Lot Number CVX Code Drug Manager Front Status Comments Source zoster recombinant 2023 () Not Given zoster recombina nt DoD COVID Vaccine Pfizer 2020 TRS 208 PFIZER complet ed COVID Vaccine Pfizer 03/08/21 Given Ambulat ory Pharmac y COVID-19, mRNA, LNP-S, PF, 30 mcg/0.3 mL dose 2020 BOGDASARIAN, () Not Given COVID-19, mRNA, LNP-S, PF, 30 mcg/0.3 mL dose DoD influenza, injectable, quadrivalent- pf 2020 [id number] 150 GlaxoSmithKli ne complet ed influenza , injectabl e, quadrival ent-pf 01/09/21 Given Ambulat ory Pharmac y influenza, injectable, quadrivalent, preservative free 2020 JAYDAINCASRomario, () Not Given influenza , injectabl e, quadrival ent, preservat santana free DoD tetanus, diphtheria, acellular pertu is 2020 UNK 115 GlaxoSmithKli ne complet ed tetanus, diphtheri a, acellular pertussis 09/01/20 Given Ambulat ory Pharmac y Tdap 2020 BOGDASARIAN, () Not Given Tdap DoD COVID Vaccine Pfizer 2020 [id number] PFIZER complet ed COVID Vaccine Pfizer 08/12/20 Given Ambulat ory Pharmac y COVID Vaccine Pfizer 2020 [id number] 208 PFIZER complet ed COVID Vaccine Pfizer 07/22/20 Given Ambulat ory Pharmac y influenza, injectable, quadrivalent- pf 2019 [id number] 150 Seqirus complet ed influenza , injectabl e, quadrival ent-pf 12/06/19 Given Ambulat ory Pharmac y influenza, injectable, quadrivalent, preservative free 2019 BOGDASARIAN, () Not Given influenza , injectabl e, quadrival ent, preservat santana free DoD influenza, injectable, quadrivalent- pf 2018 [id number] 150 Seqirus complet ed influenza , injectabl e, quadrival ent-pf 01/18/19 Given Ambulat ory Pharmac y influenza, injectable, quadrivalent- pf 2017 [id number] 150 GlaxoSmithKli ne complet ed influenza , injectabl e, quadrival ent-pf 12/29/17 Given Ambulat ory Pharmac y influenza, injectable, quadrivalent- pf 2016 [id number] 150 GlaxoSmithKli ne complet ed influenza , injectabl e, quadrival ent-pf 12/30/16 Given Ambulat ory Pharmac y influenza, injectable, quadrivalent- pf 2015 [id number] 150 GlaxoSmithKli ne complet ed influenza , injectabl e, quadrival ent-pf 12/18/15 Given Ambulat ory Pharmac y tetanus-dipht h toxoids (Td) adult/adol 2015 [id number] complet ed tetanus-d iphth toxoids (Td) adult/ado l 06/19/15 Given Ambulat ory Pharmac y influenza, live, intranasal,qu adrivalent 2014 [id number] 149 Medimmune Inc comple t ed influenza , live, intranasa l,quadriv alent 01/23/15 Given Ambulat ory Pharmac y influenza, live, intranasal,qu adrivalent 2013 [id number] 149 Medimmune Inc comple t ed influenza , live, intranasa l,quadriv alent 01/18/14 Given Ambulat ory Pharmac y influenza, live, intranasal,qu adrivalent 2012 [id number] 149 Medimmune Inc comple t ed influenza , live, intranasa l,quadriv alent 02/10/13 Given Ambulat ory Pharmac y influenza, live, intranasal, quadrivalent 0 2012 ZEKE WANG D [id number] 149 MedImmune, Inc. (MED) complet ed influenza , live, intranasa l, quadrival ent DoD influenza virus vaccine, live 2011 [id number] 111 Medimmune Inc [facility] t ed influenza virus vaccine, live 01/11/12 Given Ambulat ory Pharmac y influenza virus vaccine, live, attenuated, for intranasal use 0 2011 [id number] 111 MedImmune, Inc. (MED) complet ed influenza virus vaccine, live, attenuate d, for intranasa l use DoD influenza virus vaccine, live 2010 UNK 111 Medimmune Inc comple t ed influenza virus vaccine, live 01/03/11 Given Ambulat ory Pharmac y influenza virus vaccine, live, attenuated, for intranasal use 0 2010 UNK 111 [employer]. (MED) complet ed influenza virus vaccine, live, attenuate d, for intranasa l use DoD vaccinia (smallpox) vaccine 2010 zzLef t Arm Vv04-00 3a 75 Urjanet complet ed vaccinia (smallpox ) vaccine 10/25/10 Given Ambulat ory Pharmac y anthrax vaccine 2010 zzRig ht Arm [id number] 24 Emergent Biosolutions complet ed anthrax vaccine 10/25/10 Given Ambulat ory Pharmac y typhoid Vi capsular polysaccharid e vac 2010 zzRig ht Arm [id number] 101 sanofi pasteur complet ed typhoid Vi capsular polysacch aride vac 10/25/10 Given Ambulat ory Pharmac y hepatitis B adult vaccine 2010 zzRig ht Arm [id number] 4bb 43 GlaxoSmithKli ne complet ed hepatitis B adult vaccine 10/25/10 Given Ambulat ory Pharmac y tuberculin purified protein derivative 2010 zzRig ht Arm [id number] sanofi pasteur complet ed Patient Tolerance : Negative Ambulat ory Pharmac y anthrax vaccine 1 2010 ELLIOT REYNOLDS [id number] [employer] [place] (MIP) complet ed anthrax vaccine DoD hepatitis B vaccine, adult dosage 3 2010 ELLIOT REYNOLDS [id number] 4bb 43 [facility] (SKB) complet ed hepatitis B vaccine, adult dosage DoD vaccinia (smallpox) vaccine 0 2010 ELLIOT REYNOLDS Vv04-00 3a 75 [facility] ([place]) complet ed vaccinia (smallpox ) vaccine DoD tuberculin skin test; purified protein derivative solution, intradermal 0 2010 ELLIOT REYNOLDS [id number] Sanofi Pasteur ([facility]) complet ed tuberculi n skin test; purified protein derivativ e solution, intraderm al DoD typhoid Vi capsular polysaccharid e vaccine 1 2010 ELLIOT REYNOLDS [id number] 101 Sanofi Pasteur (PMC) complet ed typhoid Vi capsular polysacch aride vaccine DoD influenza virus vaccine, live 2009 [id number] 111 Unknown complet ed influenza virus vaccine, live 01/15/10 Given Ambulat ory Pharmac y influenza, seasonal, injectable 2009 141 Novartis Pharmaceutica ls complet ed influenza , seasonal, injectabl e 01/15/10 Given Ambulat ory Pharmac y influenza virus vaccine, live, attenuated, for intranasal use 0 2009 [id number] 111 Unknown (UNK) complet ed influenza virus vaccine, live, attenuate d, for intranasa l use DoD Influenza, seasonal, injectable 0 2009 141 Novartis Pharmaceutica l Marjan. (NOV) complet ed Influenza , seasonal, injectabl e DoD Novel influenza-H1N 1-09, injectable 2009 [id number] I 127 complet ed Novel influenza -V0I6-70, injectabl e 03/28/09 Given Ambulat ory Pharmac y Novel influenza-H1N 1-09, injectable 0 2009 [id number] I 127 (AG) complet ed Novel influenza -P6K9-87, injectabl e DoD influenza virus vaccine, live 2008 [id number] 111 Medimmune Inc comple t ed influenza virus vaccine, live 02/20/09 Given Ambulat ory Pharmac y influenza virus vaccine, live, attenuated, for intranasal use 0 2008 [id number] 111 [employer] Inc. (MED) complet ed influenza virus vaccine, live, attenuate d, for intranasa l use DoD hepatitis A-hepatitis B vaccine 2007 [id number] 3AA 104 GlaxoSmithKli ne complet ed hepatitis A-hepatit is B vaccine 02/22/08 Given Ambulat ory Pharmac y hepatitis B adult vaccine 2007 AHABB12 3AA 43 GlaxoSmithKli ne complet ed hepatitis B adult vaccine 02/22/08 Given Ambulat ory Pharmac y influenza virus vaccine, live 2007 [id number] 111 Medimmune Inc comple t ed influenza virus vaccine, live 02/22/08 Given Ambulat ory Pharmac y hepatitis B vaccine, adult dosage 2 2007 AHABB12 3AA 43 SmithKline (SKB) complet ed hepatitis B vaccine, adult dosage DoD hepatitis A and hepatitis B vaccine 2 2007 AHABB12 3AA 104 SmithKline (SKB) complet ed hepatitis A and hepatitis B vaccine DoD influenza virus vaccine, live, attenuated, for intranasal use 0 2007 [id number] 111 [employer], Inc. (MED) complet ed influenza virus vaccine, live, attenuate d, for intranasa l use DoD influenza virus vaccine, live 2006 UNK 111 [employer] comple t ed influenza virus vaccine, live 01/19/07 Given Ambulat ory Pharmac y influenza virus vaccine, live, attenuated, for intranasal use 0 2006 UNK 111 [employer] Inc. (MED) complet ed influenza virus vaccine, live, attenuate d, for intranasa l use DoD hepatitis B adult vaccine 2006 AHABB06 8AA 43 GlaxoSmithKli ne complet ed hepatitis B adult vaccine 05/19/06 Given Ambulat ory Pharmac y tuberculin purified protein derivative 2006 Body, whole [id number] Shahzad Gudino complet ed tuberculi n purified protein derivativ e 05/19/06 Given Ambulat ory Pharmac y hepatitis A-hepatitis B vaccine 2006 Body, whole AHABB06 8AA 104 GlaxoSmithKli ne complet ed hepatitis A-hepatit is B vaccine 05/19/06 Given Ambulat ory Pharmac y hepatitis A adult vaccine 2006 AHABB06 8AA 52 GlaxoSmithKli ne complet ed hepatitis A adult vaccine 05/19/06 Given Ambulat ory Pharmac y hepatitis B vaccine, adult dosage 1 2006 AHABB06 8AA 43 SmithKline (SKB) complet ed hepatitis B vaccine, adult dosage DoD hepatitis A vaccine, adult dosage 2 2006 AHABB06 8AA 52 SmithKline (SKB) complet ed hepatitis A vaccine, adult dosage DoD tuberculin skin test; purified protein derivative solution, intradermal 1 2006 90079 96 Sabrina () complet ed tuberculi n skin test; purified protein derivativ e solution, intraderm al DoD hepatitis A and hepatitis B vaccine 1 2006 AHABB06 8AA 104 SmithKline (SKB) complet ed hepatitis A and hepatitis B vaccine DoD influenza virus vaccine, live 2005 [id number] 111 [employer] comple t ed influenza virus vaccine, live 02/17/06 Given Ambulat ory Pharmac y influenza virus vaccine, live, attenuated, for intranasal use 0 2005 Unknown, Provider [id number] 111 [employer] Inc. (MED) complet ed influenza virus vaccine, live, attenuate d, for intranasa l use DoD typhoid Vi capsular polysaccharid e vac 2005 UNK 101 sanofi pasteur complet ed typhoid Vi capsular polysacch aride vac 06/18/05 Given Ambulat ory Pharmac y tetanus toxoid, adsorbed 2005 UNK 35 complet ed tetanus toxoid, adsorbed 06/18/05 Given Ambulat ory Pharmac y hepatitis A adult vaccine 2005 UNK 52 Merck & Company Inc complet ed hepatitis A adult vaccine 06/18/05 Given Ambulat ory Pharmac y measles/mumps /rubella virus vaccine 2005 UNK 03 Merck & Company Inc complet ed measles/m umps/rube lla virus vaccine 06/18/05 Given Ambulat ory Pharmac y measles, mumps and rubella virus vaccine 0 2005 Unknown, Provider UNK 03 Merck (MSD) complet ed measles, mumps and rubella virus vaccine DoD tetanus toxoid, adsorbed 0 2005 Unknown, Provider UNK 35 Primo (BAY) complet ed tetanus toxoid, adsorbed DoD hepatitis A vaccine, adult dosage 1 2005 Unknown, Provider UNK 52 Merck (MSD) complet ed hepatitis A vaccine, adult dosage DoD typhoid Vi capsular polysaccharid e vaccine 1 2005 Unknown, Provider UNK 101 Sanofi Pasteur (PMC) complet ed typhoid Vi capsular polysacch aride vaccine DoD poliovirus vaccine, inactivated 1989 UNK 10 sanofi pasteur complet ed polioviru s vaccine, inactivat ed 09/12/89 Given Ambulat ory Pharmac y poliovirus vaccine, inactivated 0 1989 Unknown, Provider UNK 10 Sanofi Pasteur (PMC) complet ed polioviru s vaccine, inactivat ed DoD measles/mumps /rubella virus vaccine 1972 UNK 03 complet ed measles/m umps/rube lla virus vaccine 06/20/72 Given Ambulat ory Pharmac y measles, mumps and rubella virus vaccine 0 1972 UNK 03 (TRN) complet ed measles, mumps and rubella virus vaccine DoD Results Combined list of recent chemistry, hematology and other laboratory results from Department of Defense and Veterans Affairs, ranging from 15 months to all on record, depending upon the facility. Order Name Results Value Reference Range Date Interpretation Specimen Comments Source Infectious Disease HIV-1/2 AG/AB 4G CDD LC NEGATIVE 02/02 Result Comment: Performed At: [facility] [id number] [address] [place] [address] NEIL IRIS PHD Ph:[phone] [facility] Source of Test.LC Gen Force Test (02/02/23 8:04 AM) 02/02 N [facility] Encounters Combined list of: 1) Encounters from Department of Veterans Affairs facilities going backup to the last 18 months, not all [place] inpatient encounters are included; 2) Encounters from the Department of [facility] facilities going backup to 280 months. Location Location Details Encounter Type Encounter Number Reason For Visit Attending Provider ADM Date DC Date Status Disposition Source [place] OUTPATIENT [id number] ANTOLIN Beck 12/12 Released with Work/Duty Limitations [place]) OUTPAT[place] [id number] f/u wound check MIRELLA ZARAGOZA 12/15 [place]ased [place] Limitations [place] [facility] OUTPATIENT [id number] UBALDO PORTER 10/25 Released w/o Limitations [facility]( [place] [facility]) [facility] OUTPATIENT [id number] ree/pre deploym ent ANTOLIN OLIVEIRA 10/25 Released w/o Limitations [facility] [place] [facility]) [facility]( Deploymen t Cl) OUTPATIENT [id number] PRE/PHA CHANTAL CRAWLEY 10/25 Released w/o Limitations [facility] Cl) [facility] OUTPATIENT [id number] Notes Entered by: VALENCIA GARRIDO 25 Oct 2010 1354 ------- ------- ------- ------- -- IMMS RODOLFO ELLIOT Ana 10/25 Released w/o Limitations [facility]( [place] [facility] [place] [facility]) OUTPATIENT [id number] Pre-Dep tico renteria s screeni ng/[place]ra[place] MICHELLE LAMAR ISABELLA 11/16 Released [place]/o Limitations [place]) [place] [facility] [place] [facility] OUTPATIENT [id number] Mobiliz ation - B3 ABBEY WILKINS 11/16 [place] Limitations [place] [facility] [place]) OUTPATIENT [id number] flumist late entry 03 jan 2011 GISSEL GONCALVES 01/12 Released w/o Limitations [place] [place]LE [facility] [id number] triage LUIS ENRIQUE BURGER 01/16 [place]erred for Appointment [place]) OUTPATIENT [id number] sore throat CHANTAL MENDOZA 01/16 [place]ased [place] Limitations [place]) [place] [id number] PHA PART 2 SYDNI LOCKETT 11/02 [place]ased [place] Limitations [place] [facility] OUTPATIENT [id number] Notes Entered by: DO CARLOS WANG Yosi 2012 1445 ------- ------- ------- ------- -- Flu Mist ZEEK WANG 01/10 [place]ased [place] Limitations [place] [place] [id number] hernadez pain/rx /cdt/in structe d/uod SYDNI LOCKETT 05/10 [place]ased [place]o Limitations [place] [facility]) [place]) TELE CONSULT [id number] Notes Entered by: Maria Fernanda LÓPEZ 20 May 2012 1335 ------- ------- ------- ------- -- Normal x-ray results [id number] . WILFRIDO LÓPEZ 05/20 Other Not Elsewhere Classified [place] [facility] Physical [facility]) OUTPATIENT [id number] PABLO CHUNG 11/01 [place]ased [place] Limitations [place] [facility]) [place] OUTPATIENT [id number] INGRID MCKEON 11/04 [place]ased [place]/o Limitations [place] [facility]) [place] OUTPATIENT [id number] SYDNI MERRILL 11/05 [place]ased [place]/o Limitations [place] [facility]) [place] TELE CONSULT [id number] Notes Entered by: SAGRARIO MARK 06 Nov 2012 0943 ------- ------- ------- ------- -- MARLENY Perez REASON/ ADVISE NANCY HUFFMAN 11/06 [place] OUTPATIENT [id number] possibl e hernia SYDNI LOCKETT 11/06 [place] Limitations [place] OUTPATIENT [id number] MUSCLE SPASMS IN ABDOMIN AL REGION SYDNI LOCKETT W 11/27 [facility] [facility] TELE CONSULT [id number] Notes Entered by: NANCY HUFFMAN 11 Dec 2012 1425 ------- ------- ------- ------- -- Needs CPAP titrati on study NANCY HUFFMAN 12/11 [place] [facility] TELE CONSULT [id number] Notes Entered by: NANCY HUFFMAN 11 Dec 2012 1504 ------- ------- ------- ------- -- Request ing results of labwork and US NANCY HUFFMAN 12/11 [place] [facility]) [place] TELE CONSULT [id number] Notes Entered by: NANCY HUFFMAN 18 Dec 2012 1451 ------- ------- ------- ------- -- DME for CPAP NANCY HUFFMAN 12/18 [place] [facility] [place] OUTPATIENT [id number] EYE EXAM/87 [id number] MARIAMAIVANIA FAUSTIN E 12/23 Released w/o Limitations [facility] [facility] [id number] Notes Entered by: DO CARLOS WANG D 10 Feb 2013 0911 ------- ------- ------- ------- -- ZEKE LOPEZ 02/10 Released w/o Limitations [facility] [place] [id number] abdomin able discomf ort SYDNI LOCKETT 08/18 Released [place]/o Limitations [place] [place] Physical Exams [facility]) OUTPATIENT [id number] MALIK EVANS 10/24 Released [place]/o Limitations [place]Mem Physica [place] Exams [facility]) [facility]) OUTPATIENT [id number] Notes Entered by: VARGAS JOHNSON 10 Nov 2013 1254 ------- ------- ------- ------- -- SUSHIL HOANG 11/10 Released w/o Limitations [facility](NMP S) [facility]( [facility]) OUTPATIENT [id number] OK/RUNN ER RIGHT FOOT DISCOMF ORT 3 MONTHS/ TERMINA L ELIESER YADIRA ANTHONY Swapnil 12/18 Released with Work/Duty Limitations [facility]( [facility] [id number] Encount er for examina tion of ears and hearing without abnorma l finding s ABBEY ARCHULETA 10/30 Discharge Disposition: Home or Self Care 0035[facility] Outpatient Encounter [id number] Diagnos is: ICD-10- CM Z02.89 Encount er for other adminis trative examina tions KEV ALBRIGHT 03/07 [place] [facility] [facility] Procedures Combined list of: 1) Procedures from Department of Veterans Affairs facilities going back up to thelast 18 months, not all VA non-surgical procedures are included; 2) All procedures from the Department of Defense facilities. Procedure Procedure Type Code Date Perfomer Comments Sourc e UNLISTED VACCINE/TOXOID 2010 DoD FITTING OF SPECTACLES, EXCEPT FOR APHAKIA; MONOFOCAL 2010 DoD AUDIOMETRIC TESTING OF GROUPS 2010 DoD INFLUENZA VIRUS VACCINE, QUADRIVALENT, LIVE (LAIV4), FOR INTRANASAL USE 2012 [facility] OPHTHALMOLOGICAL SERVICES: MEDICAL EXAMINATION AND EVALUATION WITH INITIATION OF DIAGNOSTIC AND TREATMENT PROGRAM; COMPREHENSIVE, NEW PATIENT, 1 OR MORE VISITS 2012 [facility] NUTRITION CLASSES, NON-PHYSICIAN PROVIDER, PER SESSION 2012 [facility] ONLINE ASSESS &MANAG SERV PROVIDE,A QUAL NONPHYS HCP TO AN ESTABLISHED PAT/GUARDIAN,NOT ORIGINAT FRM RELAT ASSESS &MANAG SERV PROVIDE W/IN THE PREV 7 DAYS,USE THE [employer] 2012 [facility] INFLUENZA VIRUS VACCINE, TRIVALENT, LIVE (LAIV3), FOR INTRANASAL USE 2011 [facility] INFLUENZA VIRUS VACCINE, TRIVALENT, LIVE (LAIV3), FOR INTRANASAL USE 2010 [facility] BEHAVIORAL HEALTH SCREENING TO DETERMINE ELIGIBILITY FOR ADMISSION TO TREATMENT PROGRAM 2010 [facility] OTHER SURGICAL EXTRACTION OF TOOTH 1990 [facility] Immunization Admin By Intranasal / Oral Route One Vaccine Immunization Admin By Intranasal / Oral Route One Vaccine 82063 2012 ZEKE WANG [facility] Determination Of Refractive State Determination Of Refractive State 78811 2012 IVANIA LESLIE [facility] Spectacles Services Fitting Monofocals (Not For Aphakia) Spectacles Services Fitting Monofocals (Not For Aphakia) 09580 2012 IVANIA LESLIE [facility] Ophthalmological New Patient Start Comprehensive Care Ophthalmological New Patient Start Comprehensive Care [id number] 2012 IVANIA LESLIE [facility] Internet Med Svc Qual Nonphys Healthcare Prof Estab Patient Internet Med Svc Qual Nonphys Healthcare Prof Estab Patient [id number] 2012 WILFRIDO LÓPEZ [facility] Influenza Virus Vaccine Live Intranasal 2011 GISSEL GONCALVES [facility] Immunization Admin By Intranasal / Oral Route One Vaccine Immunization Admin By Intranasal / Oral Route One Vaccine 86499 2011 GISSEL GONCALVES [facility] Influenza Virus Vaccine Live Intranasal 2010 GISSEL GONCALVES [facility] Immunization Admin By Intranasal / Oral Route One Vaccine Immunization Admin By Intranasal / Oral Route One Vaccine 24043 2010 GISSEL GONCALVES [facility] Behavioral health screening to determine eligibility for admi ion to treatment program 2010 MICHELLE LAMAR PATIENT INTAKE REPRESENTATIVE FOUND MENTALLY FIT FOR CONTINUED SHORE AND SEA DUTY WITHOUT RESTRICTIONS AND IS WORLDWIDE DEPLOYABLE. [facility] Typhoid Vaccine Vi Capsular Polysaccharide, For Intramus Use Typhoid Vaccine Vi Capsular Polysaccharide, For Intramus Use 28392 2010 PRADIP LAINEZ Typhoid, ViCPs; Series #: 1; .5 mL; IM; Right Arm; Mfg: Sanofi Pasteur; Lot: [id number]; VIS given (Esteban: 08/05/03). [facility] Immunization Administration One Vaccine Immunization Administration One Vaccine 77760 2010 PRADIP LAINEZ [facility] Immunization Administration Each Additional Vaccine 2010 PRADIP LAINEZ [facility] Anthrax Vaccine, For Subcutaneous Use 2010 PRADIP LAINEZ Anthrax; Series #: 1; .5 mL; IM; Right Arm; Mfg: [facility]; Lot: [id number]; VIS given (Esteban: 05/26/2009). [facility] Hepatitis B Vaccine (Active); 20 Years and Above 2010 PRADIP LAINEZ Hep B - Adult; Series #: 3; 1.0 mL; IM; Right Arm; Mfg: [employer]; Lot: [id number]; VIS given (Esteban: 10/03/06; 04/17/07 - Multiple). [facility] Vaccines Vaccines 74949 2010 PRADIP LAINEZ Smallpox; Series #: 1; .1 mL; ID; Left Arm; Mfg: [employer]; Lot: [id number]; VIS given (Esteban: 04/03/02). [facility] Skin Test Anergy Tuberculin Intradermal Skin Test Anergy Tuberculin Intradermal 55571 2010 PRADIP LAINEZ IPPD; Series #: 1; .1 mL; ID; Right Arm; Mfg: Sanofi Pasteur; Lot: [id number]; VIS given. [facility] Ophthalmological New Patient Start Comprehensive Care Ophthalmological New Patient Start Comprehensive Care 23334 2010 ANTOLIN OJEDA Determination Of Refractive State Determination Of Refractive State 73792 2010 ANTOLIN OJEDA [employer] [facility] Fitting Monofocals (Not For Aphakia) [facility] [facility] Fitting Monofocals (Not For Aphakia) 41256 2010 ANTOLIN OJEDA [facility] Audiometry Group Testing Audiometry Group Testing 13766 2010 UBALDO PORTER [facility] No data available for this section Ambulato ry Pharmacy Social History Combined list of available smoking, tobacco, and other social history from [facility] of Defense and Veterans Affairs facilities. Social History Type Response Date Comment Sourc e Sex Representation Male (finding) 06/05/2021 Un known Organization This section is an empty social history section. [facility] Sexual Orientation Ambula tory Pharmacy Gender identity Ambulator y Pharmacy Assessment and Plan Combined list of future care activities from Department of Defense and Veterans Affairs facilities (e.g., assessment and plan notes, appointments, orders, and referrals). Additional future care activities may be listed in the Plan of Care section. Result Assessment and Plan Date Source Assessment and Plan Extracted from:Title : AUDIOLOGY NOTE NON-OCC Author: ISABELLA JONES Date: 10/31/23 Encounter for examination of ears and hearing without abnormal findings Hearing WNL.???A copy of the hearing test was given to patient and a copy of the hearing test was scanned into Chrissy. NON-OCC ? Isabella Perez.?Brianna Hearing Steward/Stewardess [facility], [place], [place] ? 07/17/[address] [place] [address] Functional Status Combined list of recent functional and cognitive assessments recorded at [facility] ([place] Functional [place]en Measurement (FIM) Scale: 1 = Total Assistance (Subject = 0% +), 2 = Maximal Assistance (Subject = 25% +), 3 = Moderate Assistance (Subject = 50% +), 4 = Minimal Assistance (Subject = 75% +), 5 = Supervision, 6 = Modified Tilden (Device), 7 = Complete Tilden (Timely, Safely). Assessment Date/Time Source Assessment Type Assessment Skill Assessment Score Assessment Details No data available for this section
[2024-07-17 10:03] LABS: MANUAL DIFF FLAG NO
[2024-07-17 10:12] LABS: Basophils Absolute Auto 0.1 X10*3/uL (0.0-0.2); Basophils Percent Auto 1.4 % (0-2); Eosinophils Absolute Auto 0.3 X10*3/uL (0.0-0.4); Hematocrit 40.4 % (42.0-52.0); Hemoglobin 13.8 g/dl (14.0-18.0); Lymphocytes Absolute Auto 1.4 X10*3/uL (1.2-4.9); Lymphocytes Percent Auto 34.1 % (20-40); Mean Corpuscular HGB Conc 34.2 g/dl (31.0-36.0); Mean Corpuscular Hemoglobin 30.6 pg (27.0-33.0); Mean Corpuscular Volume 89.6 fL (80.0-98.0); Mean Platelet Volume 11.4 fL (9.4-12.4); Monocytes Absolute Auto 0.4 X10*3/uL (0.1-1.2); Monocytes Percent Auto 9.4 % (2-11); Neutrophils Percent Auto 48.1 % (45-73); Platelet Count 238 X10*3/uL (160-400); Red Blood Count 4.51 X10*6/uL (4.60-5.80); Red Cell Distribution Width 12.4 % (11.0-16.0); White Blood Count 4.2 X10*3/uL (4.8-10.8)
[2024-07-17 10:40] LABS: Estimated Average Glucose 108 mg/dL; Hemoglobin A1C 126.1562 umol/L; Hemoglobin A1c % 5.4 % (<6.0); Total Hemoglobin (HGBA1C) 3604.3624 umol/L
[2024-07-17 10:46] LABS: Alanine Aminotransferase 24 U/L (0-40); Albumin Level 4.4 g/dL (3.5-5.0); Alkaline Phosphatase 51 U/L (39-117); Anion Gap 10 (12-20); Aspartate Amino Transferase 26 U/L (5-37); Bilirubin Direct 0.2 mg/dL (0.0-0.5); Bilirubin Total 0.5 mg/dL (0.0-1.0); Blood Urea Nitrogen 13 mg/dL (9-16); C Reactive Protein < 0.10 mg/dL (< or = 0.50); Carbon Dioxide 27 mmol/L (22-29); Chloride 104 mmol/L (96-108); Cholesterol 154 mg/dL (<200); Estimated Glomerular Filt Rate > 60; Glucose Fasting 104 mg/dL (60-99); HDL Cholesterol 44 mg/dL (>40); LDL Cholesterol Calculated 99 mg/dL (<100); Magnesium 2.1 mg/dL (1.6-2.6); Potassium 4.2 mmol/L (3.3-5.1); Sodium 137 mmol/L (135-145); Total Protein 7.1 g/dL (6.5-8.0); Triglycerides 57 mg/dL (<150)
[2024-07-17 10:51] LABS: Erythrocyte Sedimentation Rate 3 MM/HR (0-15)
[2024-07-17 11:01] LABS: PSA,Total (Free>4and<10) 0.62 ng/mL (0.00-4.00)
[2024-07-17 11:06] LABS: Folate 13.3 ng/mL (> or = 4.0); Vitamin B12 302 pg/mL (200-900)
[2024-07-17 11:08] LABS: Vitamin D 25-OH Total 46.9 ng/mL (>30)
== END 2024-07-17 08:25 | disposition home or self-care (01) ==
LOC: HO.HMGCLDS 08:24
PROVIDERS: PCP Internal Medicine; Visit Provider Physician Assistant Medical
DX: Z00.00 Encounter for general adult medical examination without abnormal findings (principal); Z12.5 Encounter for screening for malignant neoplasm of prostate; Z13.6 Encounter for screening for cardiovascular disorders
CPT/HCPCS: 36415; 80053; 80061; 80076; 82248; 82306; 82607; 82746; 83036; 83735; 84153; 84443; 85025; 85652; 86140

== ENCOUNTER 2024-08-05 14:56 | Outpatient (AMB) | payer OTHER, SELFPAY ==
--- NOTE | 2024-08-05 15:10 | A.OFFPC_ITS ---
Vital Signs 08/05/24 15:11 Height 5 ft 10 in Weight 204 lb BMI 29.3 BP 117/66 Respiration 14 Pulse 58 Pulse Source Pulse Oximeter Temp 98.2 F Temp Source Temporal Artery Scan Pulse Oximetry (%) 98 Oxygen Delivery Method Room Air Intake Visit Reasons: physical Belt Knife Feeder Required: No Accompanied by: Self / Same As Patient Allergies No Known Allergies Allergy (Verified 08/05/24 15:40) Medication List - Last Reconciled 08/05/24 by Ceci Watt PA-C cholecalciferol (vitamin D3) (Vitamin D3) 25 mcg PO DAILY multivitamin 1 tab PO DAILY Tobacco use date assessed: 08/05/24 Dental Screening Dental Screen Date: 08/05/24 Did you have a dental visit in the last 12 months?: Yes Did you have a dental problem in the last 6 months where you did not have access to dental care?: No Was dental information given to patient?: Patient has dentist HPI physical HPI Details The patient is a 54-year-old male presenting to establish a new primary care provider, for an annual physical exam and to discuss his chronic medical conditions. His primary care provider Dr. Linares retired in March. He has a history of oral lichen planus which is ongoing. Previously, the patient experienced gastroesophageal reflux disease and underwent treatment with omeprazole, however, this has since been resolved following an upper endoscopy that showed no abnormalities, and dietary management has helped alleviate concerns about esophageal function. The patient reports a distant history of hemorrhoids but states that this condition has resolved. He underwent a colonoscopy in 2021 with normal findings and no recurrence of symptoms such as bloody stools. The patient has sleep apnea managed with the use of a CPAP machine every night. Blood work has shown episodes of low white blood cell counts and mild anemia, which have been monitored over time. The white blood cell count occasionally falls but generally returns to normal levels. The anemia fluctuates similarly and has been associated with bowel movements or gastrointestinal upset. The patient's laboratory results indicate close to prediabetes, with a hemoglobin A1c of 5.4. The fasting glucose levels are slightly elevated at 104. He has maintained good control over his cholesterol with diet and lifestyle modifications, resulting in a decrease in both LDL and total cholesterol without the use of statins. Patient reports he would like imaging of his heart due to he is getting older and he would like to make sure he is in good health. He reports a co-worker who is younger than him had a sudden after he had a normal exam from his PCP this is why the patient is concerned. He denies any dizziness, chest pain, shortness of breath, abdominal pain, black or bloody stools, unintentional weight gain or weight loss or any other symptoms complaints or concerns at this time. Social History - Former tobacco use, quit over 20 years ago - Active in the [employer], physically active, engages in running - History of colonoscopies, last in 2021 - Manages diet to include adequate fiber and reduce cholesterol [facility] Medical History (Updated 08/05/24 @ 17:21 by Ceci Watt PA-C) Overweight with body mass index (BMI) of 29 to 29.9 in adult Leukopenia Anemia Heart murmur Stress fracture, left tibia, initial encounter for fracture GERD (gastroesophageal reflux disease) Annual physical exam Establishing care with new doctor, encounter for Annular oral lichen planus Hemorrhoids COVID-19 vaccine series completed Sleep apnea Surgical History History of colonoscopy (~07/22/21) Hx of wisdom tooth extraction Family History Father Diabetes Mother Hernia Social History Housing: House Alcohol intake: current Alcohol intake frequency: a few times a month Patient Tobacco Use Status: Former Tobacco user Tobacco use type: Cigarette service: No Current occupational status: employed Cognitive needs: No Hearing needs: No Vision needs: Yes (rx glasses) Questionnaire PHQ-9 Over the last 2 weeks, how often have you been bothered by any of the following problems? 1. Little interest or pleasure in doing things: not at all 2. Feeling down, depressed, or hopeless: not at all 3. Trouble falling or staying asleep, or sleeping too much: not at all 4. Feeling tired or having little energy: not at all 5. Poor appetite or overeating: not at all 6. Feeling bad about yourself - or that you are a failure or have let yourself or your family down: not at all 7. Trouble concentrating on things, such as reading the newspaper or watching television: not at all 8. Moving or speaking so slowly that other people could have noticed. Or the opposite - being so fidgety or restless that you have been moving around a lot more than usual: not at all 9. Thoughts that you would be better off or of hurting yourself in some way: not at all Total score: 0 Depression Screening Interpretation: Negative Depression Screening Done: Yes 89763 - PHQ-9 Billing: Yes Source: Developed by Drs. Roberto Monzon, Orin Abdullahi, Emile Wiseman and colleagues, with an educational miguel angel from [employer]. Thrive Questionnaire Date Thrive assessed: 08/05/24 I am a: Patient What is your living situation today?: I have a steady place to live Within the past 12 months, did the food you bought not last and you didn't have the money to get more?: Never true Within the past 12 months, did you worry whether your food would run out before you got money to buy more?: Never true Do you have trouble paying for medicines?: No Do you have trouble getting transportation to medical appointments?: No Do you have trouble paying your heating and electricity bill?: No Do you have trouble taking care of your child, family member or friend?: No Do you have trouble with day-to-day activities such as bathing, preparing meals, shopping, managing finances, etc.?: No Are you currently unemployed and looking for a job?: No Are you interested in more education?: No Please select the resources that you would like help with: None THRIVE Score: 0 AUDIT C Alcohol Use Questionnaire (AUDIT-C) 1. How often do you have a drink containing alcohol?: 2-4 times a month 2. How many drinks containing alcohol do you have on a typical day when you are drinking?: 1 or 2 3. How often do you have six or more drinks on one occasion?: Never Total Score: 2 Score Reviewed/Action Taken: No DO-7 AMB Questionnaire DO-7 Date DO - 7 assessed: 08/05/24 Feeling nervous, anxious, or on edge: 0 = Not at all Not being able to stop or control worryin = Not at all Worrying too much about different things: 0 = Not at all Trouble relaxin = Not at all Being so restless that it is hard to sit still: 0 = Not at all Becoming easily annoyed or irritable: 0 = Not at all Feeling afraid as if something awful might happen: 0 = Not at all Total DO-7 score (0-4 normal; 5-9 mild; 10-14 moderate; 15-21 severe): 0 Source: Developed by Drs. Roberto Monzon, Orin Abdullahi, Emile Wiseman and colleagues, with an educational miguel angel from [employer]. DO-7 Assessment Billing DO-7 Assessment Tool: DO-7 Assessment 03808 Review of Systems Const Details: - Gastrointestinal: Reports past gastroesophageal reflux disease, resolved; denies current symptoms - Respiratory: Denies shortness of breath, dyspnea on exertion, or chest pain - Cardiovascular: Denies chest pain, shortness of breath, or swelling - Neurologic: Denies fatigue or weakness during daily activities Physical exam (Primary Care) Vital Signs: Last Vital Signs Temp 98.2 F 08/05/24 15:11 Pulse 58 08/05/24 15:11 Resp 14 08/05/24 15:11 BP 117/66 08/05/24 15:11 Pulse Ox 98 08/05/24 15:11 Oxygen Delivery Method Room Air 08/05/24 15:11 Care Plan Goal for BP management: <140/90 at Goal BMI result Body Mass Index 29.3 BMI Assessment/Plan discussion: High BMI High, discussed plan: lifestyle, weight reduction, dietary, physical activity and alcohol moderation Tobacco/Smoking Status: Tobacco use Status Tobacco use date assessed 08/05/24 08/05/24 15:13 Patient Tobacco Use Status Former Tobacco user 08/05/24 15:25 Tobacco use type Cigarette 08/05/24 15:25 PHQ-9: PHQ-9 Score PHQ-9: Total score 0 08/05/24 15:42 Depression Screening Interpretation: Negative Thrive Assessment: Date of Thrive Assessment Date Thrive assessed 08/05/24 08/05/24 15:13 Const Other: Appearance: Alert. Oriented X3. No acute distress. Head: Normal external exam. Normocephalic. Atraumatic. Eyes: Pupils are equal, round, and reactive to light. Extraocular movements intact. Conjunctiva and sclera normal. Eyelids normal. Ears: External auditory canal normal. Tympanic membranes normal. Throat: Pharynx normal. Uvula midline. Moist mucous membranes. Neck: Normal inspection. Neck supple. Full range of motion. No adenopathy. Thyroid Normal. No meningeal signs. No neck mass noted. Cardiovascular: Normal heart rate and rhythm. Heart sound normal. ? murmur on exam. Pulses normal throughout. Respiratory: No respiratory distress. Painless inspiration. Breath sounds normal. No wheezes/rales/rhonchi noted. Chest nontender. No accessory muscle usage noted or decreased air movement noted. Abdomen: Soft and nontender. Bowel sounds normal in all 4 quadrants. No distention noted. No organomegaly noted. No visible injury noted. Back: No costovertebral angle tenderness. Full range of motion noted. Skin: Skin warm and dry. Normal skin color. Normal skin turgor. No rashes/lesions/lacerations noted. Extremities: No lower extremity edema. Extremities exhibit normal range of motion. Extremities nontender. Neuro: Oriented X 3. No motor deficit. No sensory deficit. Reflexes normal. Results Reviewed Results Reviewed: - Labs: Occasional low white blood cell count and mild anemia with episodic fluctuations; stable hemoglobin A1c at 5.6 indicating prediabetes; normal LDL and HDL cholesterol levels; normal PSA, vitamin B12, and vitamin D levels Coding Level of Care Code New Pt Level 4 (15493) New Pt Prev Care 40-64y(56950) Diagnoses Annual physical exam Z00.00 Establishing care with new doctor, encounter for Z Annular oral lichen planus L43.8 Hemorrhoids K64.9 Sleep apnea G47.30 Anemia D64.9 Leukopenia D72.819 Overweight with body mass index (BMI) of 29 to 29.9 in adult E66.3; Z68.29 Additional Codes DO-7 Assessment Billing - DO-7 Assessment Tool: DO-7 Assessment 69589 ([id number]) PHQ-9 - 59449 - PHQ-9 Billing: Yes ([id number]) Time Spent (min) 50 Assessment & Plan Assessment & Plan (1) Annual physical exam: Code(s): Z00.00 - Encounter for general adult medical examination without abnormal findings Category: Medical (2) Establishing care with new doctor, encounter for: Code(s): Z76.89 - Persons encountering health services in other specified circumstances Category: Medical (3) Annular oral lichen planus: Code(s): L43.8 - Other lichen planus Category: Medical Plan: Management of oral lichen planus will focus on symptom awareness and avoidance of triggers. Condition is chronic and stable continue to monitor. (4) Hemorrhoids: Code(s): K64.9 - Unspecified hemorrhoids Category: Medical Plan: Condition is chronic and stable continue to monitor. (5) Sleep apnea: Comment: uses CPAP Code(s): G47.30 - Sleep apnea, unspecified Category: Medical Plan: Continued use of CPAP has been effective for symptom management. Condition is chronic and stable continue to monitor. (6) Anemia: Code(s): D64.9 - Anemia, unspecified Category: Medical Plan: Iron and ferritin tests ordered to assess any potential underlying causes and will be monitored based on future lab results. Condition is chronic and stable continue to monitor. (7) Leukopenia: Code(s): D72.819 - Decreased white blood cell count, unspecified Category: Medical Plan: Will reassess in 3-6 months. Condition is chronic and stable continue to monitor. (8) Overweight with body mass index (BMI) of 29 to 29.9 in adult: Code(s): E66.3 - Overweight; Z68.29 - Body mass index [BMI] 29.0-29.9, adult Category: Medical Plan: Condition is chronic and stable continue to monitor. Plan Plan Patient was informed and verbally consented to the use of an ambient scribe for clinic note documentation during this visit. 1. Oral Lichen Planus Management of oral lichen planus will focus on symptom awareness and avoidance of triggers. 2. Anemia Iron and ferritin tests ordered to assess any potential underlying causes and will be monitored based on future lab results. 3. Sleep Apnea Continued use of CPAP has been effective for symptom management. 4. Close to Prediabetes Dietary modifications suggested with follow-up blood work in six months to evaluate the need for further intervention. 5. Hyperlipidemia Persistent lifestyle changes are recommended. Current cholesterol levels are favorable without the need for medication. During today's visit, I discussed the patient's ongoing health issues and management strategies. We addressed the resolved status of gastroesophageal reflux disease and hemorrhoids, which were achieved through dietary modifications and successful past interventions. The patient was informed about the slight fluctuations in anemia and the occasional low white blood cell counts, with further tests such as iron and ferritin levels planned to investigate causes. For prediabetes, I emphasized the importance of maintaining lower sugar intake and continuing weight management behaviors, with the und erstanding that improved dietary habits may stabilize glucose levels. We also reviewed the patient's cholesterol profile and concluded that no statin is needed due to current dietary efficacy. Orders: Orders IRON PROFILE Today D64.9 - Anemia, unspecified Ferritin Today D64.9 - Anemia, unspecified CA echo transthoracic complete Today R01.1 - Cardiac murmur, unspecified CA echo stress exercise w con Today R01.1 - Cardiac murmur, unspecified US carotid duplex BI Today R01.1 - Cardiac murmur, unspecified Dihydrotestosterone Today Z00.00 - Encounter for general adult medical examination without abnormal findings ECG 12 lead EKG Today R01.1 - Cardiac murmur, unspecified NM cardiolite stress test Today R01.1 - Cardiac murmur, unspecified DHEA Sulfate Today Z00.00 - Encounter for general adult medical examination without abnormal findings Testosterone, Total Today Z00.00 - Encounter for general adult medical examination without abnormal findings Patient Instructions: - Continue using CPAP nightly for sleep apnea. - Adhere to dietary recommendations to manage blood sugar and cholesterol. - Monitor for symptoms related to oral lichen planus and seek advice if needed. - Complete the ordered lab tests, no fasting necessary. - Return for follow-up in six months for re-evaluation of blood work. - Seek medical attention if symptoms of anemia or other concerns arise.
[2024-08-05 15:11] VITALS: BP 117/66; PULSE 58; RESP 14; TEMP 36.8; O2SAT 98; BMI 29.3
--- OUTSIDE RECORDS SUMMARY | 2024-08-05 16:04 | XMS_ITS | Continuity of Care Document ---
Author Name [facility] Organization [facility] Care Team Providers Care Behaviorist Name Role Phone [facility] Unavailable Unavailable Problems Combined list of problems from Department of Defense and Veterans Affairs facilities. It does not include entries that were removed or entered in error. 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 Condition [facility] visit for: administrative purpose Inactive Condition DoD Dietary Counseling Pertaining To Specific Condition Active Condition DoD HERNADEZ SPLINT Inactive Condition [facility] visit for: occupational health / fitness exam [...] DoD Need For Vaccination Typhoid Inactive Condition DoD REFRACTIVE ERROR - MYOPIA Active Condition [facility] ASTIGMATISM - REGULAR Active Condition [facility] visit for: ears / hearing exam Inactive Condition [facility] visit for: services physical Active Condition DoD [...] departing back to home. RTC sooner PRN. [facility] Diagnosis: ICD-10-CM Z02.89 Encounter for other administrative [...] 2021 No Facilit y Access FLUARIX QUAD [id number] (influenza virus vaccine quadrival [id number](6 mos and up)/PF), 60MCG/.5ML, FLUARIX QUAD 2 [...] E,rec/AS01B adjuvant/PF ), 50 MCG/0.5, KIT, INTRAMUSC, RushFilesK LINE, 1 ea. KIT Active [id number] 2023 1 Pharmac y Data Transac [...] Known Allergies Drug allergy (disorder) active 12/15/2005 [facility] Immunizations Combined list of available immunizations from the Department of Defense and Veterans Affairs facilities. Immunization Series Date Given Administered By Site Reaction Lot Number CVX Code Drug Seo Analyst Status Comments Source zoster recombinant 2023 () [...] Given Tdap DoD COVID Vaccine Pfizer 2020 [id number] PFIZER complet ed COVID Vaccine Pfizer 08/12/20 Given Ambulat ory Pharmac y COVID Vaccine Pfizer 2020 [id number] PFIZER complet ed COVID Vaccine Pfizer 07/22/20 Given Ambulat ory Pharmac y influenza, injectable, quadrivalent- pf 2019 [id number] 150 Seqirus complet ed influenza , injectabl e, quadrival ent-pf 12/06/19 Given Ambulat ory Pharmac y influenza, injectable, quadrivalent, preservative free 2019 BOGDASARIAN, () Not Given influenza , injectabl e, quadrival ent, preservat santana free DoD influenza, injectable, quadrivalent- pf 2018 [id number] 150 Seqirus complet ed influenza , [...] Pharmac y influenza, live, intranasal,qu adrivalent 2014 [id number] 149 Medimmune Inc comple t ed influenza , live, intranasa l,quadriv alent 01/23/15 Given Ambulat ory Pharmac y influenza, live, intranasal,qu adrivalent 2013 [id number] 149 Medimmune Inc comple t ed influenza , live, intranasa l,quadriv alent 01/18/14 Given Ambulat ory Pharmac y influenza, live, intranasal,qu adrivalent 2012 [id number] 149 Medimmune Inc comple t ed influenza , live, intranasa l,quadriv alent 02/10/13 Given Ambulat ory Pharmac y influenza, live, intranasal, quadrivalent 0 2012 ZEKE WANG D [id number] 149 MedImmune, Inc. (MED) complet ed influenza , live, intranasa l, quadrival ent DoD influenza virus vaccine, live 2011 [id number] [address] [facility] t ed influenza virus vaccine, live 01/11/12 Given Ambulat ory Pharmac y influenza virus vaccine, live, attenuated, for intranasal use 0 2011 [id number] 111 MedImmune, Inc. (MED) complet ed influenza virus vaccine, live, attenuate d, for intranasa l use DoD influenza virus vaccine, live 2010 UNK 111 Medimmune Inc comple t ed influenza virus vaccine, live 01/03/11 Given Ambulat ory Pharmac y influenza virus vaccine, live, attenuated, for intranasal use 0 2010 UNK 111 Glipho, Kiromic. (MED) complet ed influenza virus vaccine, live, attenuate d, for intranasa l use DoD vaccinia (smallpox) vaccine 2010 zzLef t Arm [id number] 75 Hubblr complet ed vaccinia (smallpox ) vaccine 10/25/10 Given Ambulat ory Pharmac y anthrax vaccine 2010 zzRig ht Arm [id number] 24 Emergent Biosolutions complet ed anthrax vaccine [...] purified protein derivative 2010 zzRig ht Arm [id number] sanofi pasteur complet ed Patient Tolerance : Negative Ambulat ory Pharmac y anthrax vaccine 1 2010 ELLIOT REYNOLDS [id number] 24 Emergent [employer]Def[employer] Corry (MIP) complet ed anthrax vaccine DoD hepatitis B vaccine, adult dosage 3 2010 ELLIOT REYNOLDS [id number] 43 [facility] (SKB) complet ed hepatitis B vaccine, adult dosage DoD vaccinia (smallpox) vaccine 0 2010 ELLIOT REYNOLDS [id number] [id number] 75 [facility] ([place]) complet ed vaccinia (smallpox ) vaccine DoD tuberculin skin test; purified protein derivative solution, intradermal 0 2010 ELLIOT REYNOLDS [id number] 96 Sanofi Pasteur ([facility]) complet ed tuberculi n skin test; purified protein derivativ e solution, intraderm al DoD typhoid Vi capsular polysaccharid e vaccine 1 2010 ELLIOT REYNOLDS [id number] 101 Sanofi Pasteur ([facility]) complet ed typhoid Vi capsular polysacch aride vaccine DoD influenza virus vaccine, live 2009 [id number] 111 Unknown complet ed influenza virus vaccine, live 01/15/10 Given Ambulat ory Pharmac y influenza, seasonal, injectable 2009 141 Novartis Pharmaceutica ls complet ed influenza , seasonal, injectabl e 01/15/10 Given Ambulat ory Pharmac y influenza virus vaccine, live, attenuated, for intranasal use 0 2009 [id number] 111 Unknown (UNK) complet ed influenza virus vaccine, live, attenuate d, for intranasa l use DoD Influenza, seasonal, injectable 0 2009 141 Novartis Pharmaceutica l Marjan. (NOV) complet ed Influenza , seasonal, injectabl e DoD Novel influenza-H1N 1-09, injectable 2009 [id number] I 127 complet ed Novel influenza -H4H2-51, injectabl e 03/28/09 Given Ambulat ory Pharmac y Novel influenza-H1N 1-09, injectable 0 2009 [id number] I 127 (AG) complet ed Novel influenza -Y1X8-54, injectabl e DoD influenza virus vaccine, live 2008 [id number] 111 Medimmune Inc comple t ed influenza virus vaccine, live 02/20/09 Given Ambulat ory Pharmac y influenza virus vaccine, live, attenuated, for intranasal use 0 2008 [id number] 111 MedIEPIOMED THERAPEUTICS, Inc. (MED) complet ed influenza virus vaccine, [...] Pharmac y influenza virus vaccine, live 2007 [id number] 111 Medimmune Inc comple t ed influenza [...] live, attenuated, for intranasal use 0 2007 [id number] 111 Glipho, Inc. (MED) complet ed influenza virus vaccine, live, attenuate d, for intranasa l use DoD influenza virus vaccine, live 2006 UNK 111 Asset InternationalJascha Inc comple t ed influenza virus vaccine, live 01/19/07 Given Ambulat ory Pharmac y influenza virus vaccine, live, attenuated, for intranasal use 0 2006 UNK 111 Glipho, Inc. (MED) complet ed influenza virus vaccine, live, attenuate d, for intranasa l use DoD hepatitis B adult vaccine 2006 [id number] 43 GlaxoSmithKli ne complet ed hepatitis B adult vaccine 05/19/06 Given Ambulat ory Pharmac y tuberculin purified protein derivative 2006 Body, whole 73943 96 Shahzad Gudino complet ed tuberculi n [...] purified protein derivative solution, intradermal 1 2006 56813 96 Sabrina () complet ed tuberculi n skin test; purified protein derivativ e solution, intraderm al DoD hepatitis A and hepatitis B vaccine 1 2006 [id number] [id number] 104 SmithKline (SKB) complet ed hepatitis A and hepatitis B vaccine DoD influenza virus vaccine, live 2005 [id number] 111 Asset InternationalJascha Inc comple t ed influenza virus vaccine, live 02/17/06 Given Ambulat ory Pharmac y influenza virus vaccine, live, attenuated, for intranasal use 0 2005 Unknown, Provider [id number] 111 Glipho, Inc. (MED) complet ed influenza virus vaccine, [...] Performed At: [facility] [address] [facility] [address] [place] [address] NEIL IRIS PHD Ph:[phone] [facility] [place] [facility] Source of Test.LC Gen Force Test (02/02/23 8:04 AM) 02/02 N [facility] [place] Encounters Combined list of: 1) Encounters from Department of Veterans Affairs facilities going backup to the last 18 months, not all [place] inpatient encounters are included; 2) Encounters from the Department of [facility] facilities going backup to 280 months. Location Location Details Encounter Type Encounter Number Reason For Visit Attending Provider ADM Date DC Date Status Disposition Source [place]) OUTPATIENT [id number] ANTOLIN Beck 12/12 Released with Work/Duty Limitations [place]) OUTPATIENT [id number] f/u wound check MIRELLA ZARAGOZA 12/15 [place]ased [place] Lim[place] [facility] OUTPATIENT [id number] UBALDO PORTER 10/25 Released w/o Limitations [facility]( [place] [facility]) [facility] OUTPATIENT [id number] ree/pre deploym ent ANTOLIN OLIVEIRA 10/25 Released w/o Limitations [facility]( [place] [facility]) [facility] [place]( De[facility]men t Cl) OUTPATIENT [id number] PRE/PHA CHANTAL CRAWLEY 10/25 Released w/o Limitations [facility]( Deploym ent Cl) [facility]) OUTPATIENT [id number] Notes Entered by: VALENCIA GARRIDO 25 Oct 2010 1354 ------- ------- ------- ------- -- IMMS RODOLFO ELLIOT Ana 10/25 Released w/o Limitations [facility] [place]( [place] [facility]) [place] [facility] OUTPATIENT [id number] Pre-Dep tico renteria s screeni ng/[place]ra[place] MICHELLE LAMAR ISABELLA 11/16 [place]ased [place]/o Limitations [place] Behav[place] [facility]) [place] [facility] [facility] OUTPATIENT [id number] Mobiliz ation - B3 ABBEY WILKINS 11/16 [place] Lim[place] OUTPATIENT [id number] flumist late entry 03 jan 2011 GISSEL GONCALVES 01/12 [place]ased [place] Lim[place] [place] TELE CONSULT [id number] triage LUIS ENRIQUE BURGER 01/16 [place]erred for Appointment [place] [facility] OUTPATIENT [id number] sore throat CHANTAL MENDOZA 01/16 [place]/o Lim[place] [place] OUTPATIENT [id number] PHA PART 2 SYDNI LOCKETT 11/02 [place] Lim[place] OUTPATIENT [id number] Notes Entered by: DO CARLOS WANG Yosi 2012 1445 ------- ------- ------- ------- -- Flu Mist ZEKE WANG 01/10 [place] [id number] hernadez pain/rx /cdt/in structe d/uod SYDNI LOCKETT 05/10 [place] [facility]) TELE CONSULT [id number] Notes Entered by: Maria Fernanda LÓPEZ 20 May 2012 1335 ------- ------- ------- ------- -- Normal x-ray results [id number] . WILFRIDO LÓPEZ 05/20 Other Not Elsewhere Classified [place] [facility]Mem Physical Exams [facility] [place] OUTPATIENT [id number] PABLO CHUNG 11/01 [place]o Limitations [place] Phys[place] [facility] [place] OUTPATIENT [id number] INGRID MCKEON 11/04 [place]ased [place]o Limitations [place] [facility]) OUTPATIENT [id number] SYDNI MERRILL 11/05 [place] Limitations [place] [facility]) [place] TELE CONSULT [id number] Notes Entered by: SAGRARIO MARK 06 Nov 2012 0943 ------- ------- ------- ------- -- MARLENY Perez REASON/ ADVISE NANCY HUFFMAN 11/06 [place] OUTPATIENT [id number] possibl e hernia SYDNI LOCKETT 11/06 [place] Limitations [place] OUTPATIENT [id number] MUSCLE SPASMS IN ABDOMIN AL REGION SYDNI LOCKETT W 11/27 [facility]ased w/o Limitations [facility] [facility] TELE CONSULT [id number] Notes Entered by: NANCY HUFFMAN 11 Dec 2012 1425 ------- ------- ------- ------- -- Needs CPAP titrati on study NANCY HUFFMAN 12/11 [place] [facility] TELE CONSULT [id number] Notes Entered by: NANCY HUFFMAN 11 Dec 2012 1504 ------- ------- ------- ------- -- Request ing results of labwork and US NANCY HUFFMAN 12/11 [place] [facility] TELE CONSULT [id number] Notes Entered by: NANCY HUFFMAN 18 Dec 2012 1451 ------- ------- ------- ------- -- DME for CPAP NANCY HUFFMAN 12/18 [place] [place] OUTPATIENT [id number] EYE EXAM/87 04336 MARIAMAIVANIA FAUSTIN E 12/23 Released w/o Limitations [facility] OUT[place] [id number] Notes Entered by: DO CARLOS WANG D 10 Feb 2013 0911 ------- ------- ------- ------- -- ZEKE LOPEZ 02/10 Released w/o Limitations [facility] [place] OUT[facility]IENT [id number] abdomin able discomf ort SYDNI LOCKETT 08/18 [place]ased [place]) [place] Physical Exams [facility] OUTPATIENT [id number] MALIK EVANS 10/24 [place] Limitations [place] Phys[place] [facility] Critical access hospital([facility]) OUTPATIENT [id number] Notes Entered by: VARGAS JOHNSON 10 Nov 2013 1254 ------- ------- ------- ------- -- SUSHIL HOANG 11/10 Released w/o Limitations [facility](NMP S) [facility] [place]( [facility] [facility]) OUTPATIENT [id number] OK/RUNN ER RIGHT FOOT DISCOMF ORT 3 MONTHS/ TERMINA L ELIESER YADIRA ANTHONY Swapnil 12/18 Released with Work/Duty Limitations [facility] [place]( [facility] a Medicin e) [id number] [id number] Encount er for examina tion of ears and hearing without abnorma l finding s ABBEY ARCHULETA 10/30 Discharge Disposition: Home or Self Care 0035[facility] [place] [facility] Outpatient Encounter [id number] Diagnos is: ICD-10- CM Z02.89 Encount er for other adminis trative examina tions KEV ALBRIGHT 03/07 [place] [facility] [place] [facility] [facility] Procedures Combined list of: 1) Procedures from Department of Veterans Affairs facilities going back up to thelast 18 months, not all VA non-surgical procedures are included; 2) All procedures from the Department of Defense facilities. Procedure Procedure Type Code Date Perfomer Comments Sourc e No data available for this section Ambulato ry Pharmacy Immunization Admin By Intranasal / Oral Route One Vaccine Immunization Admin By Intranasal / Oral Route One Vaccine 21121 2012 ZEKE WANG [facility] Determination Of Refractive State Determination Of Refractive State 64369 2012 IVANIA LESLIE [facility] Spectacles Services Fitting Monofocals (Not For Aphakia) Spect[employer] Services Fitting Monofocals (Not For Aphakia) 86662 2012 IVANIA LESLIE Ophthalmological New Patient Start Comprehensive Care Ophthalmological New Patient Start Comprehensive Care 35205 2012 IVANIA LESLIE [facility] Internet Med Svc Qual Nonphys Healthcare Prof Estab Patient Internet Med Svc Qual Nonphys Healthcare Prof Estab Patient 44595 2012 WILFRIDO LÓPEZ [facility] Influenza Virus Vaccine Live Intranasal 2011 GISSEL GONCALVES [facility] Immunization Admin By Intranasal / Oral Route One Vaccine Immunization Admin By Intranasal / Oral Route One Vaccine 46706 2011 GISSEL GONCALVES [facility] Influenza Virus Vaccine Live Intranasal 2010 GISSEL GONCALVES [facility] Immunization Admin By Intranasal / Oral Route One Vaccine Immunization Admin By Intranasal / Oral Route One Vaccine 45418 2010 GISSEL GONCALVES [facility] Behavioral health screening to determine eligibility for admi ion to treatment program 2010 MICHELLE LAMAR HOG MAN FOUND MENTALLY FIT FOR CONTINUED SHORE AND SEA DUTY WITHOUT RESTRICTIONS AND IS WORLDWIDE DEPLOYABLE. [facility] Typhoid Vaccine Vi Capsular Polysaccharide, For Intramus Use Typhoid Vaccine Vi Capsular Polysaccharide, For Intramus Use 87558 2010 PRADIP LAINEZ Typhoid, ViCPs; Series #: 1; .5 mL; IM; Right Arm; [facility]: Sanofi Pasteur; Lot: [id number]; VIS given (Esteban: 08/05/03). DoD Immunization Administration One Vaccine Immunization Administration One Vaccine 52229 2010 PRADIP LAINEZ [facility] Immunization Administration Each Additional Vaccine 2010 PRADIP LAINEZ [facility] Anthrax Vaccine, For Subcutaneous Use 2010 PRADIP LAINEZ Anthrax; Series #: 1; .5 mL; IM; Right Arm; [facility]: [facility] [employer] [facility]; Lot: [id number]; VIS given (Esteban: 05/26/2009). [facility] Hepatitis B Vaccine (Active); 20 Years and Above 2010 PRADIP LAINEZ Hep B - Adult; Series #: 3; 1.0 mL; IM; Right Arm; [facility]: [employer]; Lot: [id number]; VIS given (Esteban: 10/03/06; 04/17/07 - Multiple). [facility] Vaccines Vaccines 45917 2010 PRADIP LAINEZ GERARD Smallpox; Series #: 1; .1 mL; ID; Left Arm; Mfg: [id number]; Lot: [id number]; VIS given (Esteban: 04/03/02). [facility] Skin Test Anergy Tuberculin Intradermal Skin Test Anergy Tuberculin Intradermal 71850 2010 PRADIP LAINEZ GERARD IPPD; Series #: 1; .1 mL; ID; Right Arm; Mfg: Sanofi Pasteur; Lot: [id number]; VIS given. [facility] Ophthalmological New Patient Start Comprehensive Care Ophthalmological New Patient Start Comprehensive Care 42967 2010 ANTOLIN OJEDA [facility] Determination Of Refractive State Determination Of Refractive State 38912 2010 ANTOLIN OJEDA [facility] Spectacles Services Fitting Monofocals (Not For Aphakia) [employer] Fitting Monofocals (Not For Aphakia) 75765 2010 ANTOLIN OJEDA [facility] Audiometry Group Testing Audiometry Group Testing 07140 2010 UBALDO PORTER [facility] UNLISTED VACCINE/TOXOID 2010 [facility] FITTING OF SPECTACLES, EXCEPT FOR APHAKIA; MONOFOCAL 2010 [facility] AUDIOMETRIC TESTING OF GROUPS 2010 [facility] INFLUENZA VIRUS VACCINE, QUADRIVALENT, LIVE (LAIV4), FOR INTRANASAL USE 2012 [facility] OPHTHALMOLOGICAL SERVICES: MEDICAL EXAMINATION AND EVALUATION WITH INITIATION OF DIAGNOSTIC AND TREATMENT PROGRAM; COMPREHENSIVE, NEW PATIENT, 1 OR MORE VISITS 2012 [facility] NUTRITION CLASSES, NON-PHYSICIAN PROVIDER, PER SESSION 2012 [facility] ONLINE ASSESS &MANAG SERV PROVIDE,A QUAL NONPHYS HCP TO AN ESTABLISHED PAT/GUARDIAN,NOT ORIGINAT [facility] RELAT ASSESS &MANAG SERV PROVIDE W/IN THE PREV 7 DAYS,USE THE INTERNET/SIMILAR [employer] NETWORK 2012 [facility] INFLUENZA VIRUS VACCINE, TRIVALENT, LIVE (LAIV3), FOR INTRANASAL USE 2011 [facility] INFLUENZA VIRUS VACCINE, TRIVALENT, LIVE (LAIV3), FOR INTRANASAL USE 2010 [facility] BEHAVIORAL HEALTH SCREENING TO DETERMINE ELIGIBILITY FOR ADMISSION TO TREATMENT PROGRAM 2010 [facility] OTHER SURGICAL EXTRACTION OF TOOTH 1990 [facility] Social History Combined list of available smoking, tobacco, and other social history from Department of Defense and Veterans Affairs facilities. Social History Type Response Date Comment Sourc e Sex Representation Male (finding) 06/05/2021 Un known Organization Sexual Orientation Ambula tory Pharmacy Gender identity Ambulator y Pharmacy This section is an empty social history section. DoD Assessment and Plan Combined list of future [...] into Chrissy. NON-OCC ? Isabella Perez.?Brianna Hearing Maintenance Coordinator Audiology Department [facility], [place], [place] ? 08/05/[address] [place] [address] Functional Status Combined list of recent functional and cognitive assessments recorded at Department of Defense and Veterans Affairs ([place] Functional [place] Measurement (FIM) Scale: 1 = Total Assistance (Subject = 0% +), 2 = Maximal Assistance (Subject = 25% +), 3 = Moderate Assistance (Subject = 50% +), 4 = Minimal Assistance (Subject = 75% +), 5 = Supervision, 6 = Modified [place] (Device), 7 = Complete [place] (Timely, Safely). Assessment Date/Time Source Assessment Type Assessment Skill Assessment Score Assessment Details No data available for this section
== END 2024-08-05 16:02 | disposition home or self-care (01) ==
LOC: HO.HMCSH 14:56
PROVIDERS: PCP Internal Medicine; Visit Provider Physician Assistant Medical
DX: Z00.00 Encounter for general adult medical examination without abnormal findings (principal); K64.9 Unspecified hemorrhoids; G47.30 Sleep apnea, unspecified; D64.9 Anemia, unspecified; D72.819 Decreased white blood cell count, unspecified; Z76.89 Persons encountering health services in other specified circumstances; E66.3 Overweight; L43.8 Other lichen planus; Z68.29 Body mass index [BMI] 29.0-29.9, adult

== ENCOUNTER → 2024-08-05 14:56 | Outpatient (BNVA) | payer OTHER, SELFPAY | PROVIDERS: PCP Internal Medicine; Visit Provider Physician Assistant Medical | DX: Z00.01 Encounter for general adult medical examination with abnormal findings (principal); L43.8 Other lichen planus; K64.9 Unspecified hemorrhoids; G47.30 Sleep apnea, unspecified; D64.9 Anemia, unspecified; D72.819 Decreased white blood cell count, unspecified; E66.3 Overweight; Z68.29 Body mass index [BMI] 29.0-29.9, adult; Z76.89 Persons encountering health services in other specified circumstances; Z71.3 Dietary counseling and surveillance | CPT/HCPCS: 96127; 99202 ==

== ENCOUNTER → 2024-09-02 08:02 | Outpatient (REF) | payer OTHER, SELFPAY ==
--- NOTE | 2024-09-02 08:06 | ECG_ITS ---
Test Reason : CARDIAC MURMUR Blood Pressure : */* mmHG Vent. Rate : 67 BPM Atrial Rate : 67 BPM P-R Int : 118 ms QRS Dur : 106 ms QT Int : 412 ms P-R-T Axes : -17 91 86 degrees QTcB Int : 435 ms Normal sinus rhythm Rightward axis Nonspecific T wave abnormality Abnormal ECG No previous ECGs available Referred By: Ceci Watt Electronically Signed By: Juan Dwyer
--- NOTE | 2024-09-02 08:06 | CA_ITS ---
Transthoracic Echocardiogram Patient (Last, First, Middle): Flo Blair, Gender: Male Date of : 1970 Age: 54 Procedure Date: 09/02/2024 Procedure Type: Transthoracic Echocardiogram Location: OP Height: 177.8 cm Weight: 91.63 kg BSA: 2.10 m2 Heart Rate: bpm BP: 106 / 62 mmHg Agriscience Instructor: TO/RC Referring MD: Ceci Watt PA-C Symptoms: R01.1 - Cardiac murmur, unspecified Study Quality: Fair ECG Rhythm: Sinus Conclusions: - The left ventricular systolic function is normal. The calculated ejection fraction is 64% by biplane method. - No obvious valvular pathology seen on this study. Findings Left Ventricle Normal left ventricular cavity size. The left ventricular systolic function is normal. The calculated ejection fraction is 64% by biplane method. There is no evidence of regional wall motion abnormalities. Diastolic function is normal for age. There is mild septal asymmetric hypertrophy. Right Ventricle Normal right ventricular cavity size and systolic function. Atria The left atrium is mildly dilated. The right atrium is normal in size. Aortic Valve There is a normal trileaflet aortic valve. There is no aortic valve stenosis. There is no aortic valve regurgitation. Mitral Valve The mitral valve appears normal. There is no mitral valve regurgitation. There is no mitral valve stenosis. Pulmonic Valve There is trace pulmonic valve regurgitation. Tricuspid Valve There is trace tricuspid valve regurgitation. There is no evidence of pulmonary hypertension. Great Vessels The asc aorta is normal in size. Venous The inferior vena cava is normal in size and collapses greater than 50% with inspiration. Pericardium/Pleural There is no evidence of pericardial effusion. Prior Study Comparison No prior study available for comparison. Recommendations, Care & Conclusions No obvious valvular pathology seen on this study. Measurements 2D Linear Measurements IVSd: 1.26 0.6-0.9/0.6-1.0 cm LVIDd: 4.92 3.9-5.3/4.2-5.9 cm LVIDd Index: 2.34 2.4-3.2/2.2-3.1 cm/m2 LVIDs: 3.43 2.0-3.6 cm LVPWd: 1.01 0.7-1.1 cm LV Mass: 262.70 67-162/88-224 g LV Mass Index: 125.10 43-95/49-115 g/m2 LVOT Diam: 2.30 3.0+(-)1.3 cm 2D Systolic Function EF 4C: 68.50 >55% EF 2C: 56.60 >55% EF BiP: 64.20 >55% Mitral Valve MV Pk E: 0.65 MV PK A: 0.55 MV Decel Time: 212.00 E/A: 1.20 E'Lateral: 10.80 E'Medial: 7.40 E/E' Med: 8.80 E/E' Lat: 6.00 PHT: 62.00 MVA PHT: 3.55 Decel [place]: 3.08 Aortic Valve AoV Pk Wang: 1.35 AoV Mn Wang: 0.93 AoV VTI: 0.27 AoV Pk Grad: 7.00 Aov Mn Grad: 4.00 JEANETTE Cont.VTI: 3.89 LVOT LVOT Pk Wang: 1.28 LVOT Mn Wang: 0.79 LVOT VTI: 0.25 LVOT Pk Grad: 7.00 LVOT Mn Grad: 3.00 LVOT Diam: 2.30 LVOT Area: 4.15 Diastolic Function MV Pk E: 0.65 MV Pk A: 0.55 E/A: 1.20 E'Medial: 7.40 E/E' Med: 8.80 E' Laterial: 10.80 E/E' Lat: 6.00 Right Ventricle TAPSE (mm): 28.20 TVS' Wang: 14.40 Tricuspid Valve RA Press: 8.00 Great Vessels Aorta Sinus of Valsalva: 3.60 2.0-3.5 cm Ao Asc: 3.50 2.1-3.4 cm Pulmonary Valve PV Pk Wang: 0.69 Peak PV Grad: 2.00 Updated in Other Vendor System with Status of Final Jose Luis Cote MD electronically signed on 09/02/2024 3:13:29 PM with status of Final
== END ==
LOC: HO.CARD 08:02
PROVIDERS: PCP Internal Medicine; Visit Provider Physician Assistant Medical
DX: R01.1 Cardiac murmur, unspecified (principal)
CPT/HCPCS: 93005; 93306

== ENCOUNTER → 2024-09-02 08:06 | Outpatient (BNV) | payer OTHER, SELFPAY | PROVIDERS: PCP Internal Medicine; Visit Provider Internal Medicine | DX: R94.31 Abnormal electrocardiogram [ECG] [EKG] (principal); R01.1 Cardiac murmur, unspecified | CPT/HCPCS: 93010 ==

== ENCOUNTER 2024-09-16 09:04 | Outpatient (REF) | payer OTHER, SELFPAY ==
[2024-09-16 10:41] LABS: Iron 103 mcg/dL (45-160); Percent Iron Saturation 36 % (15-50); Total Iron Binding Capacity 289 mcg/dL (228-428); Unsaturated Iron Binding 186 ug/dL
[2024-09-16 10:56] LABS: Ferritin 85 ng/mL (20-250)
== END 2024-09-16 09:05 | disposition home or self-care (01) ==
LOC: HO.HMGCLDS 09:04
PROVIDERS: PCP Internal Medicine; Visit Provider Physician Assistant Medical
DX: Z00.00 Encounter for general adult medical examination without abnormal findings (principal); D64.9 Anemia, unspecified
CPT/HCPCS: 36415; 82627; 82642; 82728; 83540; 84403

== ENCOUNTER 2024-09-26 15:21 | Outpatient (REF) | payer OTHER, SELFPAY ==
--- NOTE | ~2024-09-26 | US_ITS ---
EXAMINATION: US EXTRACRANIAL CAROTID DUPLEX, BILATERAL CLINICAL INFORMATION: Heart murmur COMPARISON: None available. TECHNIQUE: Real-time ultrasound and Doppler techniques (integrating B-mode 2-D vascular images, Doppler spectral analysis and color-flow Doppler imaging) were utilized to interrogate the extracranial carotid arteries, the vertebral arteries and proximal subclavian arteries bilaterally. The degree of stenosis is determined by criteria similar to NASCET. FINDINGS: Right Side: 1. There is no atherosclerotic plaque seen in the bifurcation/proximal ICA region. 2. The common carotid artery PSV proximally is 133 cm/s and distally 110 cm/s. 3. The proximal internal carotid artery velocities are 86 cm/s systolic and 25 cm/s diastolic. 4. The proximal external carotid artery PSV is 96 cm/s. 5. The vertebral artery shows antegrade flow. 6. The subclavian artery waveforms are triphasic. Left Side: 1. There is no atherosclerotic plaque seen in the bifurcation/proximal ICA region. 2. The common carotid artery PSV proximally is 108 cm/s and distally 90 cm/s. 3. The proximal internal carotid artery velocities are 70 cm/s systolic and 24 cm/s diastolic. 4. The proximal external carotid artery PSV is 113 cm/s. 5. The vertebral artery shows antegrade flow. 6. The subclavian artery waveforms are triphasic. US/US carotid duplex BI IMPRESSION: 1. RIGHT: No hemodynamically significant stenosis 2. LEFT: No hemodynamically significant stenosis Electronically signed by: Radames Larose MD 09/26/2024 04:39 PM EDT
== END 2024-09-26 15:22 | disposition home or self-care (01) ==
LOC: HO.US 15:21
PROVIDERS: PCP Internal Medicine; Visit Provider Physician Assistant Medical
DX: R01.1 Cardiac murmur, unspecified (principal)
CPT/HCPCS: 93880

== ENCOUNTER → 2024-09-26 15:22 | Outpatient (BNV) | payer OTHER, SELFPAY | PROVIDERS: PCP Internal Medicine; Visit Provider Radiology Diagnostic Radiology | DX: R01.1 Cardiac murmur, unspecified (principal) | CPT/HCPCS: 93880 ==

== ENCOUNTER 2024-10-15 11:43 | Outpatient (AMB) | payer OTHER, SELFPAY ==
[2024-10-15 12:38] VITALS: BP 106/80; PULSE 66; TEMP 36.6; O2SAT 98; BMI 29.0
--- NOTE | 2024-10-15 12:38 | AM.OFFWIN_ITS ---
Intake Vital Signs 10/15/24 12:38 Height 5 ft 10 in Weight 202 lb BMI 29.0 BP 106/80 Blood Pressure Location Lt brachial Position Sitting Pulse 66 Pulse Source Pulse Oximeter Temp 97.9 F Temp Source Oral Pulse Oximetry (%) 98 Oxygen Delivery Method Room Air Intake Visit Reasons: EP rash on arms Intake Note: presents with an itchy rash on arms, hands and legs after camping recently Patient Tobacco Use Status: Former Tobacco user Allergies No Known Allergies Allergy (Verified 10/15/24 12:41) Do you need a note to return to daycare/school/sports/work: No HPI HPI Comments History of Present Illness Details History - The patient is a 54-year-old male pres enting with a rash with itching and bumps. - The rash developed over the weekend wh ile camping in [place] and has progressively worsened. - The patient reports increased bumps an d itching, with no similar symptoms in family members. - The patient has a history of sensitivi ty to environmental allergens and has received the shingles vaccine. - Current interventions include hydrocor tisone cream and calamine lotion, with partial improvement noted. - He denies fever, chills, joint pain, t ick bite or spider bite. Physical Exam General: Cooperative, healthy appearing, comfortable, no acute distress and well developed Orientation: Patient oriented x3 Limitations: No limitations Mouth: normal, moist oral mucosa Neck: Normal visual inspection and Yes full ROM Respiratory: Normal respiratory effort and able to speak in complete sentences. Clear to auscultation bilaterally. No w/r/r noted. Cardiovascular: RRR, no m/r/g noted. Normal S1 and S2 Skin: Small, non-tender, raised, dry, erythematous papules noted on the arms bilaterally. No crusting noted. No bleeding noted. Patient was informed and verbally consented to the use of an ambient scribe for clinic note documentation during this visit [facility] Medical History (Updated 08/05/24 @ 17:21 by Ceci Watt PA-C) Overweight with body mass index (BMI) of 29 to 29.9 in adult Leukopenia Anemia Heart murmur Stress fracture, left tibia, initial encounter for fracture GERD (gastroesophageal reflux disease) Annual physical exam Establishing care with new doctor, encounter for Annular oral lichen planus Hemorrhoids COVID-19 vaccine series completed Sleep apnea Surgical History History of colonoscopy (~07/22/21) Hx of wisdom tooth extraction Family History Father Diabetes Mother Hernia Social History Housing: House Alcohol intake: current Alcohol intake frequency: a few times a month Patient Tobacco Use Status: Former Tobacco user Tobacco use type: Cigarette service: No Current occupational status: employed Cognitive needs: No Hearing needs: No Vision needs: Yes (rx glasses) Review of Systems Const All systems reviewed & are unremarkable except as noted in HPI and below Physical Exam Vital Signs: Last Vital Signs Temp 97.9 F 10/15/24 12:38 Pulse 66 10/15/24 12:38 BP 106/80 10/15/24 12:38 Pulse Ox 98 10/15/24 12:38 Oxygen Delivery Method Room Air 10/15/24 12:38 BMI result Body Mass Index 29.0 Assessment & Plan Assessment & Plan (1) Rash: Code(s): R21 - Rash and other nonspecific skin eruption Plan Most likely Contact Dermatitis vs allergic reaction vs bug bites Plan - Prescribed a course of prednisone for five days to reduce inflammation and prevent spreading. - Continued use of hydrocortisone cream and calamine lotion recommended. - Advised to take an oral antihistamine for itching relief. - Patient reassured about the non-serious nature of the condition and advised to monitor for improvement. Medications: New prednisone 40 mg (2 x 20 mg) PO DAILY 10 tabs 0RF 5 days hydrocortisone 2.5% 1 appl topical BID PRN 30 grams 0RF Skin Irritation cetirizine (Zyrtec) 10 mg PO DAILY PRN 30 tabs 0RF allergy symptoms Coding Level of Care Code Est Pt Level 3 (65185) Diagnoses Rash R21
== END 2024-10-15 14:28 | disposition home or self-care (01) ==
PROVIDERS: PCP Internal Medicine; Visit Provider Physician Assistant Medical
DX: R21 Rash and other nonspecific skin eruption (principal)

== ENCOUNTER → 2024-10-15 11:43 | Outpatient (BNVA) | payer OTHER, SELFPAY | PROVIDERS: PCP Internal Medicine; Visit Provider Physician Assistant Medical | DX: R21 Rash and other nonspecific skin eruption (principal) | CPT/HCPCS: 99212 ==

== ENCOUNTER → 2024-10-16 09:27 | Outpatient (REF) | payer OTHER, SELFPAY ==
--- NOTE | ~2024-10-16 | NM_ITS ---
EXERCISE MYOCARDIAL PERFUSION STUDY INDICATION: Coronary artery disease TECHNIQUE: The patient was brought in for an exercise perfusion study on 10/16/2024. Patient performed exercise as per Jian protocol and was injected 30 mCi of sestamibi once target heart rate was achieved. Images were obtained using the SPECT gamma camera interlaced with the gating device. Images were obtained in supine position. Resting perfusion study was performed on 10/21/2024. Patient was administered 30 mCi of sestamibi intravenously at rest. Images were then obtained in supine position. Total DLP 83 mGy-cm. Images were processed with the software and compared side to side in short axis, horizontal long axis and vertical long axis views. FINDINGS: Raw aquisition reviewed. The stress perfusion study showed decreased tracer uptake along the inferior wall. With CT attenuation correction, there is improvement suggestive of diaphragmatic attenuation artifact. The gated study shows normal LV systolic function with calculated LVEF of 55%. LV cavity is normal in size. The gated study shows normal wall thickening and contraction of segments. Resting study shows diminished tracer uptake in the basal to mid inferior wall. There is improvement with CT attenuation correction suggestive of diaphragmatic attenuation artifact. Gating at rest reveals normal wall motion with ejection fraction at 50%, but visually appears higher. The findings are consistent with fixed inferior perfusion defect, probably from diaphragmatic attenuation artifact. NM/NM cardiolite stress test IMPRESSION: 1. Myocardial perfusion imaging study shows no clear evidence of ischemia or infarction. Probably normal myocardial perfusion. 2. Gated LVEF is 55% during stress. 3. Transient ischemic dilatation not present. EKG component of the test reported separately. Electronically signed by: Jose Luis Cote MD 10/22/2024 12:27 PM EDT
--- NOTE | 2024-10-16 09:31 | CA_ITS ---
Acquisition Time: 2024-10-16 10:01:34 Total Exercise Time: 00:12:23 Test Indications: R01.1 Medications: SEE H&P Protocol: LINETTE Max HR: 144 BPM 86% of Pred: 167 BPM Max BP: 184/70 mmHG Max Work Load: 14.0 METS Exercise stress test with exercise 12 mins 23 secs of Linette Protocol, achieving 86% MPHR, without any anginal symptoms, with isolated PACs, with normotensive response to exercise. Without any EKG changes meeting criteria for ischemia. In recovery, pt continued to feel well. Nuclear images pending. Test reviewed with Dr. Wei. Referred By: Ceci Watt Electronically Signed By: Roldan Suero
== END ==
LOC: HO.CARD 09:27
PROVIDERS: PCP Internal Medicine; Visit Provider Physician Assistant Medical
DX: R01.1 Cardiac murmur, unspecified (principal); D64.9 Anemia, unspecified
CPT/HCPCS: 78452; 93017; A9500

== ENCOUNTER → 2024-10-16 09:31 | Outpatient (BNV) | payer OTHER, SELFPAY | PROVIDERS: PCP Internal Medicine | DX: I25.10 Atherosclerotic heart disease of native coronary artery without angina pectoris (principal) | CPT/HCPCS: 78452; 93016; 93018 ==

== ENCOUNTER 2025-01-07 14:12 | Outpatient (REF) | payer OTHER, SELFPAY ==
[2025-01-08 07:44] LABS: Chlamydia pneumoniae PCR Not Detected (Not Detect.); Coronavirus 229E PCR Not Detected (Not Detect.); Coronavirus HKU1 PCR Not Detected (Not Detect.); Coronavirus NL63 PCR Not Detected (Not Detect.); Coronavirus OC43 PCR Not Detected (Not Detect.); RSV PCR Not Detected (Not Detect.); Rhino/Enterovirus PCR Detected (Not Detect.)
[2025-01-08 08:25] LABS: Influenza A H1 PCR Not Detected (Not Detect.); Influenza A H1-2009 PCR Not Detected (Not Detect.); Influenza A H3 PCR Not Detected (Not Detect.); SARS-CoV-2 PCR Not Detected (Not Detect.)
== END 2025-01-07 14:13 | disposition home or self-care (01) ==
LOC: HO.LAB 14:12
PROVIDERS: PCP Internal Medicine; Visit Provider Family Medicine
DX: J98.8 Other specified respiratory disorders (principal); B97.89 Other viral agents as the cause of diseases classified elsewhere; R09.89 Other specified symptoms and signs involving the circulatory and respiratory systems; R05.1 Acute cough
CPT/HCPCS: 87633; 99212

== ENCOUNTER 2025-01-07 14:12 | Outpatient (AMB) | payer OTHER, SELFPAY ==
[2025-01-07 14:28] VITALS: BP 134/82; PULSE 71; TEMP 36.7; O2SAT 97; BMI 30.4
--- NOTE | 2025-01-07 14:28 | AM.OFFWIN_ITS ---
Intake Vital Signs 01/07/25 14:28 Height 5 ft 10 in Weight 212 lb BMI 30.4 BP 134/82 Blood Pressure Location Lt brachial Position Sitting Pulse 71 Pulse Source Pulse Oximeter Temp 98.1 F Temp Source Oral Pulse Oximetry (%) 97 Oxygen Delivery Method Room Air Intake Visit Reasons: EP-chest congestion Intake Note: Patient presents with c/o chest congestion, cough x4 days Patient Tobacco Use Status: Former Tobacco user Allergies No Known Allergies Allergy (Verified 01/07/25 14:31) Medication List - Last Reconciled 01/07/25 by Leatha Mcfarland MD cetirizine (Zyrtec) 10 mg PO DAILY PRN cholecalciferol (vitamin D3) (Vitamin D3) 25 mcg PO DAILY hydrocortisone 2.5% 1 appl topical BID PRN multivitamin 1 tab PO DAILY Do you need a note to return to daycare/school/sports/work: No HPI HPI Comments History of Present Illness Details Patient was informed and verbally consented to the use of an ambient scribe for clinic note documentation during the visit. History of Present Illness The patient is a 54-year-old male presenting with upper respiratory symptoms, including cough and congestion. Respiratory Infection: - The patient reports feeling unwell for four days, characterized by chest congestion and cough. - Also reports nasal drainage and conges tion. - He denies experiencing fevers, chills, nausea, vomiting, or diarrhea. - There is a history of recent travel pr ior to symptom onset - The patient has been taking over-the-c ounter medications resembling [facility]' version of DayQuil or Mucinex. - At home COVID-19 tests were performed twice and returned negative results. - Patient concerned as he will be going on vacation soon. Review of Systems - Respiratory: Reports cough and chest c ongestion. Denies shortness of breath. - General: Denies fever, chills. - Cardiac: Denies chest pain - Gastrointestinal: Denies nausea, vomit ing, diarrhea. - EENT: Reports runny nose, congestion. Denies sore throat. - General: Denies recent illness in the household; recent travel noted. Physical Exam General Appearance: Normal appearance, well developed. No acute distress ENT: External ears and ear canals clear. TMs without erythema or bulging. Nasal drainage and postnasal drip noted. Oropharynx without significant erythema or exudates. Head: Normocephalic, atraumatic Cardiac: Regular rate and rhythm. No murmurs noted. Pulmonary: No respiratory distress. Lungs are clear to auscultation bilaterally. Speaking in full sentences Musculoskeletal: Moving all extremities spontaneously and against gravity Mental Status: Alert and Oriented x 3 Psychiatric: Normal mood. Normal affect. [facility] Medical History (Updated 08/05/24 @ 17:21 by Ceci Watt PA-C) Overweight with body mass index (BMI) of 29 to 29.9 in adult Leukopenia Anemia Heart murmur Stress fracture, left tibia, initial encounter for fracture GERD (gastroesophageal reflux disease) Annual physical exam Establishing care with new doctor, encounter for Annular oral lichen planus Hemorrhoids COVID-19 vaccine series completed Sleep apnea Surgical History History of colonoscopy (~07/22/21) Hx of wisdom tooth extraction Family History Father Diabetes Mother Hernia Social History Housing: House Alcohol intake: current Alcohol intake frequency: a few times a month Patient Tobacco Use Status: Former Tobacco user Tobacco use type: Cigarette service: No Current occupational status: employed Cognitive needs: No Hearing needs: No Vision needs: Yes (rx glasses) Physical Exam Vital Signs: Last Vital Signs Temp 98.1 F 01/07/25 14:28 Pulse 71 01/07/25 14:28 BP 134/82 01/07/25 14:28 Pulse Ox 97 01/07/25 14:28 Oxygen Delivery Method Room Air 01/07/25 14:28 BMI result Body Mass Index 30.4 Assessment & Plan Assessment & Plan (1) Viral respiratory infection: Code(s): J98.8 - Other specified respiratory disorders; B97.89 - Other viral agents as the cause of diseases classified elsewhere Plan Symptoms appear consistent with viral URI. Low suspicion for pneumonia given clear lungs to auscultation, afebrile, and patient saturating well--no indication for CXR. Discussed supportive care including rest, hydration, and OTC cough/cold medication. Viral respiratory panel obtained. Discussed indications that may require return to the walk in or follow up in ER such as worsening cough, chest pain, shortness of breath, or fevers. Orders: Orders Resp Pathogen Panel - [facility] [place] Today J06.9 - Acute upper respiratory infection, unspecified Coding Level of Care Code Est Pt Level 3 (17137) Diagnoses Viral respiratory infection J98.8; B97.89
== END 2025-01-07 15:10 | disposition home or self-care (01) ==
PROVIDERS: PCP Internal Medicine; Visit Provider Family Medicine
DX: J98.8 Other specified respiratory disorders (principal); B97.89 Other viral agents as the cause of diseases classified elsewhere
CPT/HCPCS: 99213

== ENCOUNTER 2025-02-10 08:53 | Outpatient (AMB) | payer OTHER, SELFPAY ==
--- NOTE | 2025-02-10 08:55 | A.OFFPC_ITS ---
Intake Visit Reasons: 6 month f/u Allergies No Known Allergies Allergy (Verified 01/07/25 14:31) Tobacco use date assessed: 08/05/24 Dental Screening Dental Screen Date: 08/05/24 [facility] Medical History Overweight with body mass index (BMI) of 29 to 29.9 in adult Leukopenia Anemia Heart murmur Stress fracture, left tibia, initial encounter for fracture GERD (gastroesophageal reflux disease) Annual physical exam Establishing care with new doctor, encounter for Annular oral lichen planus Hemorrhoids COVID-19 vaccine series completed Sleep apnea Surgical History History of colonoscopy (~07/22/21) Hx of wisdom tooth extraction Family History Father Diabetes Mother Hernia Social History Housing: House Alcohol intake: current Alcohol intake frequency: a few times a month Patient Tobacco Use Status: Former Tobacco user Tobacco use type: Cigarette service: No Current occupational status: employed Cognitive needs: No Hearing needs: No Vision needs: Yes (rx glasses) Questionnaire PHQ-9 Over the last 2 weeks, how often have you been bothered by any of the following problems? 1. Little interest or pleasure in doing things: not at all 2. Feeling down, depressed, or hopeless: not at all 3. Trouble falling or staying asleep, or sleeping too much: not at all 4. Feeling tired or having little energy: not at all 5. Poor appetite or overeating: not at all 6. Feeling bad about yourself - or that you are a failure or have let yourself or your family down: not at all 7. Trouble concentrating on things, such as reading the newspaper or watching television: not at all 8. Moving or speaking so slowly that other people could have noticed. Or the opposite - being so fidgety or restless that you have been moving around a lot more than usual: not at all 9. Thoughts that you would be better off or of hurting yourself in some way: not at all Total score: 0 Depression Screening Interpretation: Negative Depression Screening Done: Yes 40559 - PHQ-9 Billing: Yes Source: Developed by Drs. Roberto Monzon, Emile Miller and colleagues, with an educational miguel angel from [employer]. Thrive Questionnaire Date Thrive assessed: 08/05/24 I am a: Patient What is your living situation today?: I have a steady place to live Within the past 12 months, did the food you bought not last and you didn't have the money to get more?: Never true Within the past 12 months, did you worry whether your food would run out before you got money to buy more?: Never true Do you have trouble paying for medicines?: No Do you have trouble getting transportation to medical appointments?: No Do you have trouble paying your heating and electricity bill?: No Do you have trouble taking care of your child, family member or friend?: No Do you have trouble with day-to-day activities such as bathing, preparing meals, shopping, managing finances, etc.?: No Are you currently unemployed and looking for a job?: No Are you interested in more education?: No Please select the resources that you would like help with: None THRIVE Score: 0 AUDIT C Alcohol Use Questionnaire (AUDIT-C) 1. How often do you have a drink containing alcohol?: 2-4 times a month 2. How many drinks containing alcohol do you have on a typical day when you are drinking?: 1 or 2 3. How often do you have six or more drinks on one occasion?: Never Total Score: 2 Score Reviewed/Action Taken: No DO-7 AMB Questionnaire DO-7 Date DO - 7 assessed: 08/05/24 Feeling nervous, anxious, or on edge: 0 = Not at all Not being able to stop or control worryin = Not at all Worrying too much about different things: 0 = Not at all Trouble relaxin = Not at all Being so restless that it is hard to sit still: 0 = Not at all Becoming easily annoyed or irritable: 0 = Not at all Feeling afraid as if something awful might happen: 0 = Not at all Total DO-7 score (0-4 normal; 5-9 mild; 10-14 moderate; 15-21 severe): 0 Source: Developed by Orin Wilson Kurt Kroenke and colleagues, with an educational miguel angel from [employer]. DO-7 Assessment Billing DO-7 Assessment Tool: DO-7 Assessment 21003 Physical exam (Primary Care) Tobacco/Smoking Status: Tobacco use Status Tobacco use date assessed 08/05/24 08/05/24 15:13 Patient Tobacco Use Status Former Tobacco user 01/07/25 14:30 Tobacco use type Cigarette 08/05/24 15:25 Depression Screening Interpretation: Negative Thrive Assessment: Date of Thrive Assessment Date Thrive assessed 08/05/24 08/05/24 15:13 Coding Additional Codes PHQ-9 - 42422 - PHQ-9 Billing: Yes ([id number]) DO-7 Assessment Billing - DO-7 Assessment Tool: DO-7 Assessment 86884 ([id number])
--- NOTE | 2025-02-10 08:57 | MHC.PC.OV ---
Vital Signs 02/10/25 09:01 Height 5 ft 10 in Weight 219 lb 0.2 oz BMI 31.4 BP 129/81 Blood Pressure Location Rt brachial Pulse 62 Pulse Source Pulse Oximeter Temp 97.1 F Pulse Oximetry (%) 97 Intake Visit Reasons: 6 month f/u Allergies No Known Allergies Allergy (Verified 02/10/25 10:27) Medication List - Last Reconciled 02/10/25 by Ceci Watt PA-C cholecalciferol (vitamin D3) (Vitamin D3) 25 mcg PO DAILY multivitamin 1 tab PO DAILY Tobacco use date assessed: 08/05/24 Dental Screening Dental Screen Date: 08/05/24 HPI HPI Comments History of Present Illness Details History of Present Illness The patient is a 55 year old individual presenting for a six-month follow-up visit. The patient feels well today with no acute complaints. About a month ago, the patient had a respiratory infection after traveling, which was diagnosed as an enterovirus or rhinovirus. The patient self-tested for COVID-19 twice with home tests, and both were negative. The patient has since recovered and denies any current cough or shortness of breath. Recent lab work from July was reviewed, showing a white blood cell count of 4.2 K/uL, which is slightly below the normal range starting at 4.8 K/uL. This count has been as low as 3.5 K/uL in the past, but platelet counts have remained normal. The patient's hemoglobin A1c was 5.4%, fasting glucose was 108 mg/dL, and cholesterol levels were within normal limits. Kidney function, liver function, vitamin levels, and thyroid function were all normal. Testosterone levels were on the lower side of normal, but the patient is asymptomatic. Past cardiac testing, including a stress test, was normal. An echocardiogram showed a normal ejection fraction of 64%, mild left atrial dilation, and trace amounts of pulmonic and tricuspid valve regurgitation. The patient reports a new complaint of a chronic and gradually developing slight numbness at the tips of the right index finger and thumb. The patient also notes associated back pain and right elbow discomfort. The patient denies any weakness in the hand. For preventative care, the patient's last colonoscopy was in 2021, with the next one due in 10 years. The patient takes an ygnw-ove-csknuag multivitamin and vitamin D. Social History - Diet: Advised to decrease intake of sugar, bread, and pasta. - Supplements: Takes usns-hlf-[id number] multivitamin and vitamin D. REPLACED BY [facility] Medical History (Updated 02/10/25 @ 10:32 by Ceci Watt PA-C) Low testosterone Tricuspid valve regurgitation Pulmonic valve regurgitation Mitral valve regurgitation Asymmetric septal hypertrophy Left atrial enlargement Impaired fasting glucose Healthcare maintenance Right elbow pain Back pain Right hand paresthesia Overweight with body mass index (BMI) of 29 to 29.9 in adult Leukopenia Anemia Heart murmur Stress fracture, left tibia, initial encounter for fracture GERD (gastroesophageal reflux disease) Annual physical exam Establishing care with new doctor, encounter for Annular oral lichen planus Hemorrhoids COVID-19 vaccine series completed Sleep apnea Surgical History History of colonoscopy (~07/22/21) Hx of wisdom tooth extraction Family History Father Diabetes Mother Hernia Social History Housing: House Alcohol intake: current Alcohol intake frequency: a few times a month Patient Tobacco Use Status: Former Tobacco user Tobacco use type: Cigarette service: No Current occupational status: employed Cognitive needs: No Hearing needs: No Vision needs: Yes (rx glasses) Questionnaire PHQ-9 Over the last 2 weeks, how often have you been bothered by any of the following problems? 1. Little interest or pleasure in doing things: not at all 2. Feeling down, depressed, or hopeless: not at all 3. Trouble falling or staying asleep, or sleeping too much: not at all 4. Feeling tired or having little energy: not at all 5. Poor appetite or overeating: not at all 6. Feeling bad about yourself - or that you are a failure or have let yourself or your family down: not at all 7. Trouble concentrating on things, such as reading the newspaper or watching television: not at all 8. Moving or speaking so slowly that other people could have noticed. Or the opposite - being so fidgety or restless that you have been moving around a lot more than usual: not at all 9. Thoughts that you would be better off or of hurting yourself in some way: not at all Total score: 0 Depression Screening Interpretation: Negative Depression Screening Done: Yes 58851 - PHQ-9 Billing: Yes Source: Developed by Drs. Roberto Monzon, Orin Abdullahi, Emile Wiseman and colleagues, with an educational miguel angel from [employer]. Thrive Questionnaire Date Thrive assessed: 08/05/24 I am a: Patient What is your living situation today?: I have a steady place to live Within the past 12 months, did the food you bought not last and you didn't have the money to get more?: Never true Within the past 12 months, did you worry whether your food would run out before you got money to buy more?: Never true Do you have trouble paying for medicines?: No Do you have trouble getting transportation to medical appointments?: No Do you have trouble paying your heating and electricity bill?: No Do you have trouble taking care of your child, family member or friend?: No Do you have trouble with day-to-day activities such as bathing, preparing meals, shopping, managing finances, etc.?: No Are you currently unemployed and looking for a job?: No Are you interested in more education?: No Please select the resources that you would like help with: None THRIVE Score: 0 AUDIT C Alcohol Use Questionnaire (AUDIT-C) 1. How often do you have a drink containing alcohol?: 2-4 times a month 2. How many drinks containing alcohol do you have on a typical day when you are drinking?: 1 or 2 3. How often do you have six or more drinks on one occasion?: Never Total Score: 2 Score Reviewed/Action Taken: No DO-7 AMB Questionnaire DO-7 Date DO - 7 assessed: 08/05/24 Feeling nervous, anxious, or on edge: 0 = Not at all Not being able to stop or control worryin = Not at all Worrying too much about different things: 0 = Not at all Trouble relaxin = Not at all Being so restless that it is hard to sit still: 0 = Not at all Becoming easily annoyed or irritable: 0 = Not at all Feeling afraid as if something awful might happen: 0 = Not at all Total DO-7 score (0-4 normal; 5-9 mild; 10-14 moderate; 15-21 severe): 0 Source: Developed by Drs. Roberto Monzon, Orin Abdullahi, Emile Wiseman and colleagues, with an educational miguel angel from [employer]. OD-7 Assessment Billing DO-7 Assessment Tool: DO-7 Assessment 36699 Review of Systems Narrative Review of Systems - General: Denies unintentional weight loss or generalized weakness. - Respiratory: Denies current cough or shortness of breath. - Neurological: Reports chronic, slight numbness in the tips of the right index finger and thumb that has developed over years. Denies hand weakness. - Musculoskeletal: Reports aching back pain and right elbow discomfort. - Gastrointestinal: Denies black or tarry stools. - Genitourinary: Denies erectile dysfunction. Const All systems reviewed & are unremarkable except as noted in HPI and below Physical exam (Primary Care) Vital Signs: Last Vital Signs Temp 97.1 F 02/10/25 09:01 Pulse 62 02/10/25 09:01 BP 129/81 02/10/25 09:01 Pulse Ox 97 02/10/25 09:01 Care Plan Goal for BP management: <140/90 at Goal BMI result Body Mass Index 31.4 BMI Assessment/Plan discussion: High BMI High, discussed plan: lifestyle, weight reduction, dietary, physical activity, alcohol moderation and other Tobacco/Smoking Status: Tobacco use Status Tobacco use date assessed 08/05/24 02/10/25 09:04 Patient Tobacco Use Status Former Tobacco user 02/10/25 09:04 Tobacco use type Cigarette 02/10/25 09:04 PHQ-9: PHQ-9 Score PHQ-9: Total score 0 02/10/25 09:04 Depression Screening Interpretation: Negative Thrive Assessment: Date of Thrive Assessment Date Thrive assessed 08/05/24 02/10/25 09:04 Narrative Physical Exam Appearance: Alert. Oriented X3. No acute distress. Head: Normal external exam. Normocephalic. Atraumatic. Throat: Pharynx normal. Uvula midline. Moist mucous membranes. Neck: Normal inspection. Neck supple. Full range of motion. Cardiovascular: Normal heart rate and rhythm. Pulses normal throughout. Respiratory: No respiratory distress. Painless inspiration. Back: Full range of motion noted. Mild back pain reported, possibly related to a pinched nerve. Skin: Skin warm and dry. Normal skin color. Normal skin turgor. No rashes/lesions/lacerations noted. Extremities: Right hand exhibits slight numbness at the tips of the index finger and thumb, possibly due to a pinched nerve. Reports right elbow discomfort. No obvious deformities. Extremities exhibit normal range of motion. Negative Tinel's test. No joint effusions. No obvious ligamentous or tendon injuries noted to the hand/elbow or shoulder joint. Neuro: Oriented X 3. No motor deficit. No sensory deficit. Reflexes normal. Slight numbness in the right hand noted, possibly due to a pinched nerve. Normal steady gait. Office Procedures Flu Questionnaire Does the patient have a severe egg allergy?: No Does the patient have severe life threatening allergies?: No Does the patient have a fever or illness today?: No Has the patient ever had Guillain-[place] Syndrome?: No Has the patient ever had any past reaction to a flu shot?: No Immunizations Fluarix [id number] (PF) 45 mcg (15 mcg x 3)/0.5 mL IM syringe Performing Provider: Ceci Watt PA-C Per[facility] Documented (not given) by: Rosalina Mann on 02/10/25 09:05 Dose Route Admin Location Dispensed Lot Number Expiration Date [facility] Medicine Technologist 0.5 mL IM mL VIS Given Date VIS Provided VIS Publication Date 02/10/25 Single Vaccine 24 Eligibility Eligibility Date Funding Source Results Reviewed Results Reviewed: Results - Labs (from July): - WBC count: 4.2 K/uL. - Hemoglobin A1c: 5.4%. - Fasting glucose: 108 mg/dL. - Lipid panel: Total cholesterol 154 mg/dL, triglycerides 57 mg/dL, LDL 99 mg/dL, HDL 43 mg/dL. - Testosterone: Low end of normal. - Kidney function, liver function, vitamin B12, vitamin D, folate, and thyroid studies were all normal. - Tests and Diagnostics: - Echocardiogram: Ejection fraction 64%, mild left atrial dilation, trace pulmonic valve regurgitation, and trace tricuspid valve regurgitation. - Stress test: Normal. - Colonoscopy (2021): Normal, next screening due in 10 years. Coding Level of Care Code Est Pt Level 4 (17359) Complex visit Add On G2211 Diagnoses Healthcare maintenance Z00.00 Right hand paresthesia R20.2 Right elbow pain M25.521 Back pain M54.9 Leukopenia D72.819 Impaired fasting glucose R73.01 Left atrial enlargement I51.7 Asymmetric septal hypertrophy I51.7 Mitral valve regurgitation I34.0 Pulmonic valve regurgitation I37.1 Tricuspid valve regurgitation I07.1 Low testosterone R79.89 Additional Codes PHQ-9 - 71601 - PHQ-9 Billing: Yes ([id number]) DO-7 Assessment Billing - DO-7 Assessment Tool: DO-7 Assessment 97383 ([id number]) Time Spent (min) 60 Assessment & Plan Assessment & Plan (1) Healthcare maintenance: Code(s): Z00.00 - Encounter for general adult medical examination without abnormal findings Category: Medical Plan: The patient will undergo annual lab work, including a CBC, CMP, lipid panel, hemoglobin A1c, testosterone levels, PSA, HARSHAL, and rheumatoid factor. These should be completed the week before the next annual physical exam in July. After the next annual visit, follow-ups will be shifted to a yearly basis. (2) Right hand paresthesia: Code(s): R20.2 - Paresthesia of skin Category: Medical Plan: The symptoms of right-hand numbness, back pain, and elbow discomfort are suspected to be from a pinched nerve, though arthritis is also a possibility. A referral will be placed for physical therapy to address these issues, and PT should contact the patient within 30 days. X-rays of the back and hand will be ordered for the patient to complete prior to the physical therapy evaluation. The patient was advised to go to the ER if weakness develops or if the numbness spreads. (3) Right elbow pain: Code(s): M25.521 - Pain in right elbow Category: Medical Plan: See above (4) Back pain: Code(s): M54.9 - Dorsalgia, unspecified Category: Medical Plan: See above (5) Leukopenia: Code(s): D72.819 - Decreased white blood cell count, unspecified Category: Medical Plan: The patient's mildly low white blood cell count is not clinically concerning at this time, especially given the normal platelet count. This will be monitored with a yearly CBC. (6) Impaired fasting glucose: Code(s): R73.01 - Impaired fasting glucose Category: Medical Plan: Although the hemoglobin A1c is normal, the fasting glucose was slightly elevated. Dietary counseling was provided to reduce the intake of sugar and simple carbohydrates like bread and pasta. The patient's glucose levels will be monitored with an annual hemoglobin A1c. (7) Left atrial enlargement: Code(s): I51.7 - Cardiomegaly Category: Medical Plan: The echocardiogram findings of mild left atrial enlargement and trace tricuspid and pulmonic regurgitation are considered mild and do not require immediate cardiology referral. The plan is to monitor and repeat the echocardiogram in 2-3 years, or sooner if the patient develops symptoms such as chest pain, shortness of breath, or excessive fatigue with exertion. (8) Asymmetric septal hypertrophy: Code(s): I51.7 - Cardiomegaly Category: Medical Plan: See above (9) Mitral valve regurgitation: Code(s): I34.0 - Nonrheumatic mitral (valve) insufficiency Category: Medical Plan: See above (10) Pulmonic valve regurgitation: Code(s): I37.1 - Nonrheumatic pulmonary valve insufficiency Category: Medical Plan: See above (11) Tricuspid valve regurgitation: Code(s): I07.1 - Rheumatic tricuspid insufficiency Category: Medical Plan: See above (12) Low testosterone: Code(s): R79.89 - Other specified abnormal findings of blood chemistry Category: Medical Plan: The patient's testosterone level is on the low side of normal but the patient is asymptomatic. A repeat level will be checked with the next annual labs, with instructions to be fasting, have the test in the morning, and avoid sexual intercourse or strenuous exercise within 24-48 hours prior. A urology referral can be considered if symptoms develop in the future. Plan Plan Patient was informed and verbally consented to the use of an ambient scribe for clinic note documentation during this visit. 1. Health Maintenance Examination The patient will undergo annual lab work, including a CBC, CMP, lipid panel, hemoglobin A1c, testosterone levels, PSA, HARSHAL, and rheumatoid factor. These should be completed the week before the next annual physical exam in July. After the next annual visit, follow-ups will be shifted to a yearly basis. 2. Paresthesia Of Right Hand, Back Pain, And Right Elbow Pain The symptoms of right-hand numbness, back pain, and elbow discomfort are suspected to be from a pinched nerve, though arthritis is also a possibility. A referral will be placed for physical therapy to address these issues, and PT should contact the patient within 30 days. X-rays of the back and hand will be ordered for the patient to complete prior to the physical therapy evaluation. The patient was advised to go to the ER if weakness develops or if the numbness spreads. 3. Leukopenia The patient's mildly low white blood cell count is not clinically concerning at this time, especially given the normal platelet count. This will be monitored with a yearly CBC. 4. Prediabetes Although the hemoglobin A1c is normal, the fasting glucose was slightly elevated. Dietary counseling was provided to reduce the intake of sugar and simple carbohydrates like bread and pasta. The patient's glucose levels will be monitored with an annual hemoglobin A1c. 5. Mild Left Atrial Enlargement And Trace Valve Regurgitation The echocardiogram findings of mild left atrial enlargement and trace tricuspid and pulmonic regurgitation are considered mild and do not require immediate cardiology referral. The plan is to monitor and repeat the echocardiogram in 2-3 years, or sooner if the patient develops symptoms such as chest pain, shortness of breath, or excessive fatigue with exertion. 6. Low-Normal Testosterone The patient's testosterone level is on the low side of normal but the patient is asymptomatic. A repeat level will be checked with the next annual labs, with instructions to be fasting, have the test in the morning, and avoid sexual intercourse or strenuous exercise within 24-48 hours prior. A urology referral can be considered if symptoms develop in the future. Discussion Notes I discussed with the patient that this was a six-month follow-up and reviewed recent lab and imaging results. I explained that the mildly low white blood cell count is not currently concerning as the platelet count is normal, and we will monitor it with yearly labs. I advised the patient to reduce intake of sugar and carbohydrates due to a slightly elevated fasting glucose. We reviewed the echocardiogram results, and I reassured the patient that the findings of mild atrial enlargement and trace valve regurgitation are minor and only require monitoring, with a plan to repeat the test in 2-3 years unless new symptoms arise. I provided return precautions, including chest pain, shortness of breath, and excessive fatigue. Regarding the new complaint of right hand numbness, I explained that it is likely a pinched nerve and that physical therapy would be beneficial. I placed a referral for physical therapy and ordered X-rays of the hand and back. I instructed the patient to seek emergency care for any worsening weakness or spreading of numbness. I outlined the plan for the next annual visit in July, including getting fasting labs done a week prior. I informed the patient that follow-up visits could transition to yearly after the upcoming annual exam. Orders: Orders Influenza [id number] Immunization Today Z23 - Encounter for immunization Magnesium Today Z00.00 - Encounter for general adult medical examination without abnormal findings Microalbumin, Random (w Creat) Today E11.9 - Type 2 diabetes mellitus without complications UA CC w/rflx Micro + Cult Today Z00.00 - Encounter for general adult medical examination without abnormal findings Lipid Panel Today Z00.00 - Encounter for general adult medical examination without abnormal findings DHEA Sulfate Today Z00.00 - Encounter for general adult medical examination without abnormal findings PT Evaluation and Treatment Today M25.521 - Pain in right elbow, M54.9 - Dorsalgia, unspecified, R20.2 - Paresthesia of skin HARSHAL Reflex Titer and Pattern Today L43.8 - Other lichen planus, M25.521 - Pain in right elbow, M54.9 - Dorsalgia, unspecified, R20.2 - Paresthesia of skin C Reactive Protein Today Z00.00 - Encounter for general adult medical examination without abnormal findings Complete Blood Count Auto Diff Today Z00.00 - Encounter for general adult medical examination without abnormal findings Comprehensive [place]. Panel Fast Today Z00.00 - Encounter for general adult medical examination without abnormal findings Erythrocyte Sedimentation Rate Today Z00.00 - Encounter for general adult medical examination without abnormal findings Vitamin B12 and Folate Today Z00.00 - Encounter for general adult medical examination without abnormal findings Vitamin D 25-OH Total Today Z00.00 - Encounter for general adult medical examination without abnormal findings TSH reflex Free T4 Today Z00.00 - Encounter for general adult medical examination without abnormal findings Testosterone, Free/Total Today Z00.00 - Encounter for general adult medical examination without abnormal findings Dihydrotestosterone Today Z00.00 - Encounter for general adult medical examination without abnormal findings Hemoglobin A1c Today Z00.00 - Encounter for general adult medical examination without abnormal findings PSA,Total (Free>4and<10) Today Z00.00 - Encounter for general adult medical examination without abnormal findings XR lumbar spine 4V min Today M54.9 - Dorsalgia, unspecified XR elbow RT min 3V Today M25.521 - Pain in right elbow, R20.2 - Paresthesia of skin XR hand RT min 3V Today M25.521 - Pain in right elbow, R20.2 - Paresthesia of skin Rheumatoid Factor Today L43.8 - Other lichen planus, M25.521 - Pain in right elbow, M54.9 - Dorsalgia, unspecified, R20.2 - Paresthesia of skin Medications: New Fluarix [id number] (PF) (flu vac ts 2024-(6mos up)-PF) 0.5 mL IM ONCE 0.5 mL 0RF NS Z23 - Encounter for immunization Patient Instructions: Patient Instructions - Please get X-rays of your back and hand. You can do this anytime, but it is recommended to have them done before your physical therapy appointment. - We have sent a referral to physical therapy for your hand, elbow, and back symptoms. They should call you within a month to schedule an appointment. - Go to the emergency room immediately if you notice the numbness in your hand getting worse, spreading to other areas, or if you develop any weakness. - Please get blood work done about a week before your next annual appointment in July. - For this blood work, do not eat or drink anything after midnight, except for water or black coffee. The test should be done in the morning. - Try to reduce your intake of sugar, including foods like bread and pasta. - Let us know if you develop any chest pain, shortness of breath, or unusual tiredness when you are active. - Your next follow-up appointment will be your annual physical after August 05.
[2025-02-10 09:01] VITALS: BP 129/81; PULSE 62; TEMP 36.2; O2SAT 97; BMI 31.4
== END 2025-02-10 09:41 | disposition home or self-care (01) ==
PROVIDERS: PCP Physician Assistant Medical; Visit Provider Physician Assistant Medical
DX: Z00.00 Encounter for general adult medical examination without abnormal findings (principal); R20.2 Paresthesia of skin; M25.521 Pain in right elbow; M54.9 Dorsalgia, unspecified; D72.819 Decreased white blood cell count, unspecified; R73.01 Impaired fasting glucose; I51.7 Cardiomegaly; I34.0 Nonrheumatic mitral (valve) insufficiency; I37.1 Nonrheumatic pulmonary valve insufficiency; I07.1 Rheumatic tricuspid insufficiency; R79.89 Other specified abnormal findings of blood chemistry; Z23 Encounter for immunization

== ENCOUNTER → 2025-02-10 08:53 | Outpatient (BNVA) | payer OTHER, SELFPAY | PROVIDERS: PCP Physician Assistant Medical; Visit Provider Physician Assistant Medical | DX: Z00.00 Encounter for general adult medical examination without abnormal findings (principal); R20.2 Paresthesia of skin; M25.521 Pain in right elbow; M54.9 Dorsalgia, unspecified; D72.819 Decreased white blood cell count, unspecified; R73.01 Impaired fasting glucose; I51.7 Cardiomegaly; I34.0 Nonrheumatic mitral (valve) insufficiency; I37.1 Nonrheumatic pulmonary valve insufficiency; I07.1 Rheumatic tricuspid insufficiency; R79.89 Other specified abnormal findings of blood chemistry; Z13.31 Encounter for screening for depression | CPT/HCPCS: 90471; 96127; 99212 ==

== ENCOUNTER 2025-03-06 12:45 | Outpatient (REF) | payer OTHER, SELFPAY ==
[2025-03-06 18:42] LABS: Resp Syncy Virus RNA Qual PCR NEGATIVE (Negative); SARS COV2 PCR INHOUSE NEGATIVE (Negative)
== END 2025-03-06 12:46 | disposition home or self-care (01) ==
LOC: HO.LNP 12:45
PROVIDERS: Physician Assistant; PCP Physician Assistant Medical
DX: R05.1 Acute cough (principal); R09.89 Other specified symptoms and signs involving the circulatory and respiratory systems; Z20.828 Contact with and (suspected) exposure to other viral communicable diseases
CPT/HCPCS: 87637; 99212

== ENCOUNTER 2025-03-06 12:45 | Outpatient (AMB) | payer OTHER, SELFPAY ==
--- NOTE | 2025-03-06 13:01 | MHC.OFFWIV ---
Intake Vital Signs 03/06/25 13:03 Height 5 ft 10 in Weight 222 lb BMI 31.9 BP 130/82 Blood Pressure Location Lt brachial Position Sitting Pulse 78 Pulse Source Pulse Oximeter Temp 98.5 F Temp Source Oral Pulse Oximetry (%) 96 Oxygen Delivery Method Room Air Intake Visit Reasons: EP Chest congestion, Chills Intake Note: pt presents with chest congestion and coughing up yellowish phlegm, sinus congestion, body chills- his son was recently dx with flu Patient Tobacco Use Status: Former Tobacco user Allergies No Known Allergies Allergy (Verified 03/06/25 13:03) Do you need a note to return to daycare/school/sports/work: No HPI HPI Comments History of Present Illness Details Patient presents to the office with cold symptoms Sunday son was sick at home and tested + for influenza Patient started with symptoms + fever and chills at home + nasal and chest congestion + body aches today, Ibuprofen helped Good appetite. Okay energy He has been taking Metamucil for symptoms He said no SOB or CP Cough produces some phlegm PFSH Medical History (Updated 03/06/25 @ 13:35 by Meli Armstrong PA-C) History of echocardiogram Low testosterone Tricuspid valve regurgitation Pulmonic valve regurgitation Mitral valve regurgitation Asymmetric septal hypertrophy Left atrial enlargement Impaired fasting glucose Healthcare maintenance Right elbow pain Back pain Right hand paresthesia Overweight with body mass index (BMI) of 29 to 29.9 in adult Leukopenia Anemia Heart murmur Stress fracture, left tibia, initial encounter for fracture GERD (gastroesophageal reflux disease) Annual physical exam Establishing care with new doctor, encounter for Annular oral lichen planus Hemorrhoids COVID-19 vaccine series completed Sleep apnea Surgical History (Updated 02/10/25 @ 10:34 by Ceci Watt PA-C) History of colonoscopy (~07/22/21) Hx of wisdom tooth extraction Family History Father Diabetes Mother Hernia Social History Housing: House Alcohol intake: current Alcohol intake frequency: a few times a month Patient Tobacco Use Status: Former Tobacco user Tobacco use type: Cigarette service: No Current occupational status: employed Cognitive needs: No Hearing needs: No Vision needs: Yes (rx glasses) Review of Systems Const Reports chills, Reports fever(s) and Denies poor appetite Eyes Denies change in vision ENT Denies dizziness, Denies otalgia, Reports nasal congestion and Denies sore throat Card Denies chest pain, Denies syncope and Denies dyspnea Resp Reports cough and Denies dyspnea GI Denies abdominal pain and Denies vomiting Musc Reports myalgias Neuro Denies dizziness and Denies syncope Physical Exam Exam Exam: General: Non-toxic, NAD. Speaking full sentences. Skin: Warm dry throughout Eye: EOMI, PERRL HENT: Airway patent. Uvula midline. No pharyngeal erythema or edema. No [employer]. Bilateral canals clear. TM non-erythematous, non-bulging. No TM perforation or hemotympanum noted. Respiratory: CTA bilaterally. No wheezes, rales or rhonchi Cardiac: RRR. No murmur MSK: Full ROM extremities. Neurology: Alert. No aphasia or facial droop. Gait without abnormality Psych: Good mood and affect Vital Signs: Last Vital Signs Temp 98.5 F 03/06/25 13:03 Pulse 78 03/06/25 13:03 BP 130/82 03/06/25 13:03 Pulse Ox 96 03/06/25 13:03 Oxygen Delivery Method Room Air 03/06/25 13:03 BMI result Body Mass Index 31.9 Assessment & Plan Assessment & Plan (1) Exposure to influenza: Code(s): Z20.828 - Contact with and (suspected) exposure to other viral communicable diseases Plan: Patient seen and evaluated. Lungs CTA and vitals stable. Covid/flu/RSV swab obtained Due to influenza exposure and symptoms consistent with influenza, will order tamiflu for patient to take. Increase fluids and rest We will call when swab is resulted Patient gave verbal understanding and had no additional questions or concerns at time of discharge All questions answered (2) Cough: Code(s): R05.9 - Cough, unspecified Qualifiers: Cough type: acute Qualified Code(s): R05.1 - Acute cough Plan: see plan above Orders: Orders SARS-CoV2/FLU/RSV Today Eloisa Crouch PA-C R09.89 - Other specified symptoms and signs involving the circulatory and respiratory systems Medications: New oseltamivir (Tamiflu) 75 mg PO BID 10 caps 0RF 5 days Meli Armstrong, PA-C Coding Level of Care Code Est Pt Level 3 ([id number]) Diagnoses Exposure to influenza Z20.828 Acute cough R05.1 Cough type: acute
[2025-03-06 13:03] VITALS: BP 130/82; PULSE 78; TEMP 36.9; O2SAT 96; BMI 31.9
== END 2025-03-06 14:03 | disposition home or self-care (01) ==
PROVIDERS: PCP Physician Assistant Medical; Visit Provider Physician Assistant
DX: Z20.828 Contact with and (suspected) exposure to other viral communicable diseases (principal); R05.1 Acute cough